=== PATIENT | male | born 1965 | race Caucasian/White ===

== ENCOUNTER → 2017-04-17 | Outpatient (CLI) | payer OTHER ==
[~2017-04-17] MED LIST: ALBU1AER9 INH; ATEN50TA8 PO; IBUP-1428 PO; LISI-725 PO; RANI300T2 PO; SUCR1TAB29 PO
[2017-04-17 12:25] LABS: BASO % 0.5 %; BASO ABS # 0.03 K/uL (0-0.2); COMPLETE YES; EOS % 2.7 %; HEMATOCRIT 47.9 % (42-52); IG% 0.5 %; LYMPH % 33.7 %; MEAN CELL VOLUME 94.5 fL (80-100); MEAN CORPUSCULAR HEMOGLOBIN 32.1 pg (25-34); MEAN PLATELET VOLUME 11.3 fL (7.4-10.4); MONO % 13.5 %; NEUT % 49.1 %; PLATELET COUNT 176 K/uL (130-400); RED BLOOD COUNT 5.07 M/uL (4.7-6.1); WHITE BLOOD COUNT 6.24 K/uL (4.8-10.8)
[2017-04-17 12:43] LABS: ALT/SGPT 59 U/L (12-78); AST/SGOT 29 U/L (15-37); BLOOD UREA NITROGEN 19 mg/dl (7-18); BUN/CREATININE RATIO 18.7 (10-20); CARBON DIOXIDE 26 mmol/L (21-32); CHLORIDE 106 mmol/L (98-107); CREATININE 1.02 mg/dl (0.60-1.40); GLUCOSE 124 mg/dl (70-99); POTASSIUM 4.3 mmol/L (3.5-5.1); SODIUM 136 mmol/L (136-145)
[2017-04-17 12:52] LABS: ALKALINE PHOSPHATASE 77 U/L (45-117); CHOLESTEROL 162 mg/dl (0-200); CHOLESTEROL/HDL RATIO 5.6; HDL CHOLESTEROL 29 mg/dl; LDL CHOLESTEROL CALCULATED 69 mg/dl; TRIGLYCERIDES 319 mg/dl (0-150); VERY LOW DENSITY LIPOPROT CALC 64 mg/dl
[2017-04-18 05:35] LABS: ESTIMATED AVERAGE GLUCOSE 117 mg/dl; HA1C FLAG Normal (Normal)
[2017-04-19 10:00] LABS: QUANTIF TB AG-NIL <0.00 IU/ML; QUANTIFERON NIL 0.06 IU/ML
== END | disposition home or self-care (01) ==
LOC: C.LAB1850 09:51
PROVIDERS: ATTEND Internal Medicine
DX: R73.9 Hyperglycemia, unspecified (principal); I10 Essential (primary) hypertension; R61 Generalized hyperhidrosis

== ENCOUNTER 2024-05-14 10:14 | Inpatient (IN) ==
--- NOTE | 2024-05-14 10:48 | Emergency Department Note ---
Impression & Plan Sepsis, Bimalleolar fracture of left ankle, Acute UTI (urinary tract infection), Neutropenia, Elevated lactic acid level, Hypomagnesemia ED Provider Note HISTORY OF PRESENT ILLNESS: Patient is a 58-year-old male presenting with hematuria, lightheadedness and left ankle pain. Patient reports that he is currently undergoing chemotherapy and radiation therapy for lung cancer. His last round of chemo was last week and his last round of radiation was earlier this week. He states that he was here in the hospital for a chemical induced cardiac stress test and was referred down to the emergency department due to vital sign instability's. Patient reports he been feeling very lightheaded and dizzy for the last few weeks. He states that this is a constant issue for him. He denies any notable fevers. Denies any chest pain or significant shortness of breath. He states that he got very lightheaded while walking in his hallway 3 days ago and lost his footing and inverted his left ankle and had immediate pain to the area. He reports that he wrapped it with an Shahid wrap but has not been able to bear weight ever since. He is not on any anticoagulation or antiplatelet therapy. Denies striking his head during the fall. He states that this morning he woke up and had gross hematuria at 4 AM when he voided. He states he has not had hematuria in the past. Denies any abdominal pain. Denies any dysuria. Patient does report he has been feeling very rundown and tired over the last few days. He states that he has been sleeping more frequently than normal. ROS: as above PHYSICAL EXAM: Constitutional: Patient appears in no acute distress. HENT: Head: Normocephalic and atraumatic. Eyes: EOMI, PERRL Mouth/Throat: Mucous membranes moist. Neck: Trachea midline. Neck supple. Cardiovascular: Tachycardic with regular rhythm. No murmurs, rubs or gallops. Intact distal pulses. Pulmonary/Chest: No respiratory distress. Breath sounds clear and equal bilaterally. Port accessed in left chest. Abdominal: Abdomen soft, no tenderness, rebound or guarding. Musculoskeletal: - LLE: No obvious deformity or open wounds. Patient has ecchymosis to the ankle overlying the medial malleolus. Area is tender to palpation. Patient is able to slightly plantarflex and dorsiflex the ankle, but has significant pain. Intact DP and PT pulses. Patient able to wiggle toes. Sensation intact to light touch about the nerve distributions of the leg. Skin: Warm and dry. No rash, erythema, pallor or cyanosis Psychiatric: Appropriate mood and affect for situation. Neurological: Alert and keenly responsive. CN II-XII grossly intact, moving all extremities equally and fully. MDM: - Vitals signs showed hypertension and tachycardia. The patient was placed on the monitor and IV access was obtained. - History obtained via patient. History as above. - Chronic conditions affecting care: small cell lung cancer; HTN; HLD; IBS; DONAVON - Differential diagnoses include, but are not limited to: Sepsis; UTI; pneumonia; viral syndrome; ankle fracture; dehydration; electrolyte abnormality - Order placed for continuous cardiac monitoring. At this time, monitor showed rate of 100 bpm with normal sinus rhythm, per my interpretation. - External medical records reviewed. Pulmonary office visit note dated 05/11/2024 was reviewed. Patient was having symptomatic hypotension and orthostasis. He was started on Augmentin at his visit due to asthmatic bronchitis. - EKG interpreted by myself showed normal sinus rhythm. Rate tachycardic at 117 bpm. QT 288. No acute ischemic changes. - Laboratory workup interpreted by myself showed pancytopenia (WBC 1.34; Hgb 11.3; plt 75); neutropenic (ANC 0.92); normal PT/INR; slight hyponatremia (Na 134); acute renal failure (Cr 3.54 with BUN 84); elevated lactate (2.4); hypomagnesemia (Mg 1.5); normal troponin; normal BNP; normal procalcitonin - Patient given 2.5L NS. Patient's sepsis fluid volume calculation based on ideal body weight is 2345.5 mL. - Blood cultures obtained - Given 2g IV cefepime empirically, given his neutropenic status. Given 1 g IV magnesium for electrolyte replacement. - UA shows evidence of infection - CXR negative for pneumonia, per my interpretation. Radiology notes right lower lobe pulmonary nodule, but this is known for patient's lung cancer. - Xray left ankle shows bimalellolar fracture, per my interpretation. - Discussed ankle fracture with orthopedic surgeon on-call, Dr. Boone, at 11:45 am. He reports that this can be managed in the outpatient setting. Recommended to try to realign the mortise for reduction prior to splinting. - Patient's left ankle splinted in orthoglass. Given 1 mg IV dilaudid prior to splinting for pain control - Discussion was had with case supervisor about patient's case and need for admission - Hospitalist, Dr. Han, consulted for admission - [facility] and [facility]. I have personally spent 61 minutes of critical care time in the direct management of this patient. This includes bedside care, interpretation of diagnostic studies, and testing, discussion with consultants, patient, and family members, and other required patient management activities. This 61 minutes is in excess of all separately billable procedures. ASSESSMENT AND PLAN: Diagnosis: Sepsis; acute UTI; neutropenia; acute renal failure; elevated lactic acid; hypomagnesemia; bimalleolar left ankle fracture Plan: admit Past Med/Surg History Problem List (Updated 05/14/24 @ 13:08 by Debi Marquez MD) Hypomagnesemia (Acute) Elevated lactic acid level (Acute) Neutropenia (Acute) Acute UTI (urinary tract infection) (Acute) Bimalleolar fracture of left ankle (Acute) Sepsis (Acute) Sepsis Bimalleolar fracture of left ankle Small cell lung cancer in adult Hypotension Acute sinusitis Chest pain Chest pain with low to intermediate probability of pulmonary embolism Shortness of breath on exertion (Chronic) Sleep disturbances Small cell lung cancer (Chronic 02/14/24) Emphysema lung Asthma BPH loc w urin obs/LUTS Atherosclerotic cardiovascular disease Hypersomnolence Allergic rhinitis Abnormal PSA Bradycardia Tubular adenoma of colon Discoloration of skin Idiopathic or primary livedo reticularis Adjustment disorder with anxiety (Acute) Asthmatic bronchitis (Acute) Cervical radiculopathy (Acute) Excessive sweating (Acute) Gastritis, bile acid reflux (Acute) Hyperlipidemia (Acute) Hypertension (Acute) Ulnar nerve palsy (Acute) Medical History (Updated 05/14/24 @ 13:08 by Debi Marquez MD) IBS (irritable bowel syndrome) H. pylori infection Anxiety DONAVON (obstructive sleep apnea) Severe sleep apnea per 03/05/24 sleep study CPAP order faxed to [facility] per 03/06/24 workload communication note Emphysema lung Small cell lung cancer Recent diagnosis 01/2024 Morbid obesity Premature ventricular contraction Hx GERD without esophagitis Chronic cough History of bradycardia Hypersomnolence Allergic rhinitis Hx of gastritis Hypertension Hyperlipidemia Adjustment disorder with mixed anxiety and depressed mood Lung nodule Atherosclerotic cardiovascular disease Surgical History Port-A-Cath in place (03/12/24) Hx of tonsillectomy History of surgery History of bronchoscopy Hx of colonoscopy with polypectomy (09/2023) Hx of cardiac catheterization (2015) S/P sinus surgery S/P cholecystectomy Family History Grandmother (Maternal) Bone cancer Mother Breast cancer Hiatal hernia Endometrial cancer A-fib Father Hypertension Dementia Stroke CHF (congestive heart failure) History of lung surgery Uncle Diabetes Hypertension Stroke Grandfather Diabetes Heart disease Stroke Sister Family history of reaction to anesthesia Brother Lung cancer Sleep apnea Brother Hepatitis C Brother No problems noted. Sister Cerebral aneurysm Breast cancer Hypertension Sister No problems noted. Daughter No problems noted. Other Asthma Cancer Emphysema, unspecified Denies family history of Ovarian cancer Prostate cancer Myocardial infarction Colorectal cancer Lung disease Social History Smoking Status: Never smoker Tobacco Type: Cigarettes Age Started Using Tobacco: 24; Age Quit Using Tobacco: 46; packs per day: 2; Second Hand Exposure: No; Do You Dip or Chew Tobacco: No; Hx Alcohol Use: No (quit 35yrs ago) Hx Substance Use: No Preferred Language: Chinese Communication Ability: Effective Visual Impairment: No Limitations Hearing Ability: Normal Foxpro Developer Required: No Beliefs That Will Affect Care: None marital status: Single Current Living Situation: Alone current occupational status: employed 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 How many Children do You have: 1 Feels Safe at Home: Yes Dental Care, Regularly: No Physical Activity Frequency: Does not Exercise Seatbelt Use: always Sunscreen Use: No Assistive Devices: Glasses Allergies Allergies Allergy/AdvReac Type Severity Reaction Status Date / Time No Known Drug Allergies Allergy Verified 05/04/24 13:25 Home Meds Home Medications Medication Instructions Recorded Confirmed atorvastatin 10 mg tablet 10 mg PO QAM 02/12/24 05/04/24 escitalopram oxalate 20 mg tablet 20 mg PO QAM 02/12/24 05/04/24 losartan 100 mg tablet 100 mg PO QAM 02/12/24 05/04/24 tamsulosin 0.4 mg capsule 0.4 mg PO QAM 02/12/24 05/04/24 prochlorperazine maleate 10 mg 10 mg PO Q6H PRN 04/20/24 05/04/24 tablet (Compazine) Previous Rx's Medication Instructions Recorded albuterol sulfate 90 mcg/actuation 1 inh inhalation QID PRN shortness 09/30/23 aerosol inhaler of breath or wheezing #18 grams Auto Titrating CPAP #1 ea 03/06/24 CPAP Supplies #1 ea 03/06/24 fluticasone fur. 200 mcg-umeclid 1 inh inhalation DAILY #60 ea 03/12/24 62.5 mcg-vilant 25 mcg inhalat.powder (Trelegy Ellipta) pantoprazole 20 mg tablet,delayed 20 mg PO QAM #90 tabs 03/19/24 release trazodone 100 mg tablet 100 mg PO DAILY #30 tabs 03/23/24 atenolol 50 mg tablet 50 mg PO QAM #90 tabs 05/05/24 montelukast 10 mg tablet 10 mg PO QAM #30 tabs 05/06/24 sucralfate 1 gram tablet (Carafate) 1 g PO TID #90 tabs 05/07/24 amoxicillin 500 mg-potassium 1 tab PO BID 10 days #20 tabs 05/11/24 clavulanate 125 mg tablet (Augmentin) Results & Data (ED) Vital Signs Vital Signs - 24 hr 05/14/24 10:26 05/14/24 10:32 05/14/24 11:20 Temperature 36.5 C Temperature Source Oral Pulse Rate 140 H Pulse Rate [Left Finger] 110 H Respiratory Rate 18 22 Blood Pressure 201/158 H Blood Pressure [Right Arm] 139/109 H Blood Pressure Mean 172 Blood Pressure Mean [Right Arm] 119 Blood Pressure Position Sitting Pulse Oximetry 98 98 Oxygen Delivery Method Room Air Room Air Sepsis Recent Fever Within 48 Hours No Sepsis New/Unexplained Change in Mental Status No Sepsis Action Taken by Nursing No Action Required 05/14/24 12:09 05/14/24 12:30 Temperature Temperature Source Pulse Rate 109 H Pulse Rate [Left Finger] 98 H Respiratory Rate 18 Blood Pressure Blood Pressure [Right Arm] 136/87 Blood Pressure Mean Blood Pressure Mean [Right Arm] 103 Blood Pressure Position Pulse Oximetry 96 Oxygen Delivery Method Sepsis Recent Fever Within 48 Hours Sepsis New/Unexplained Change in Mental Status Sepsis Action Taken by Nursing Laboratory Data 05/14/24 10:53 05/14/24 10:53 Lab Results 05/14/24 Range/Units 10:53 WBC 1.34 L (4.8-10.8) K/ul RBC 3.55 L (4.70-6.10) M/uL Hgb 11.3 L (14.0-18.0) g/dl Hct 30.5 L (42.0-52.0) % MCV 85.9 (80.0-100.0) fL MCH 31.8 (25.0-34.0) pg MCHC 37.0 H (32.0-36.0) g/dL RDW Std Deviation 40.1 (36.4-46.3) fL RDW Coeff of Robert 12.9 (11.5-14.5) % Plt Count 75 L (130-400) K/uL MPV 11.0 (9.4-12.4) fL Immature Gran % (Auto) 1.5 % Neut % (Auto) 68.6 % Lymph % (Auto) 18.7 % Bonner % (Auto) 9.7 % Eos % (Auto) 0.0 % Baso % (Auto) 1.5 % Neut # (Auto) 0.92 L* (1.40-6.50) K/uL Lymph # (Auto) 0.25 L (1.20-3.40) K/uL Bonner # (Auto) 0.13 (0.11-0.59) K/uL Eos # (Auto) 0.00 (0.00-0.50) K/uL Baso # (Auto) 0.02 (0.00-0.20) K/uL Immature Gran # (Auto) 0.02 (0.01-0.20) K/uL Platelet Estimate Decreased L (Normal) PT 10.8 (9.0-12.0) Seconds INR 1.0 (0.9-1.1) Sodium 134 L (136-145) mmol/L Potassium 4.3 (3.5-5.1) mmol/L Chloride 99 (98-107) mmol/L Carbon Dioxide 20 L (21-32) mmol/L Anion Gap 15 H (3-11) BUN 84 H (6-23) mg/dl Creatinine 3.54 H (0.6-1.4) mg/dl Est Cr Clr Drug Dosing 31.5 ml/min eGFR 19.14 BUN/Creatinine Ratio 23.7 H (10-20) Glucose 130 H (70-99(Fasting)) mg/dl Lactate 2.4 H* (0.4-2.0) mmol/L Calcium 9.9 (8.6-10.3) mg/dl Magnesium 1.5 L (1.7-2.4) mg/dl Total Bilirubin 1.2 H (0.2-1.0) mg/dl Direct Bilirubin 0.2 (0-0.2) mg/dl AST 16 (13-39) U/L ALT 25 (7-52) U/L Alkaline Phosphatase 80 (34-104) U/L Troponin I High Sens 9.4 (0-20) pg/ml B-Natriuretic Peptide 26 (0-100) pg/ml Total Protein 7.5 (6.0-8.3) gm/dl Albumin 4.4 (3.4-5.0) gm/dl Procalcitonin 0.27 (0-0.5) ng/ml Urine Color Yellow Urine Appearance Cloudy A (Clear) Urine pH 5.0 (4.5-7.5) Ur Specific Coolin 1.014 (1.000-1.030) Urine Protein Trace H (Negative) Urine Glucose (UA) Negative (Negative) Urine Ketones Trace H (Negative) Urine Blood 2+ H (Negative) Urine Nitrite Negative (Negative) Urine Bilirubin Negative (Negative) Urine Urobilinogen Negative (Negative) Ur Leukocyte Esterase Trace H (Negative) Urine WBC (Auto) 21-50 H (0-5) /hpf Urine RBC (Auto) 3-5 H (0-2) /hpf U Hyaline Cast (Auto) 0-2 (0-2) /lpf U Epithel Cells (Auto) 3-5 H (0-2) /hpf Urine Bacteria (Auto) 3+ H (None Seen) Urine Mucus Present A (None Prsent) Adenovirus (PCR) Not Detected (NotDetected) B. pertussis DNA (PCR) Not Detected (NotDetected) B.parapertussis DNA PCR Not Detected (NotDetected) C. pneumoniae DNA (PCR) Not Detected (NotDetected) Coronavirus OC43 (PCR) Not Detected (NotDetected) Coronavirus HKU1 (PCR) Not Detected (NotDetected) Coronavirus 229E (PCR) Not Detected (NotDetected) SARS-CoV-2 (PCR) Not Detected (NotDetected) Coronavirus NL63 (PCR) Not Detected (NotDetected) Human Metapneumovir PCR Not Detected (NotDetected) Influenza Type A (PCR) Not Detected (NotDetected) Influenza Type B (PCR) Not Detected (NotDetected) M. pneumoniae (PCR) Not Detected (NotDetected) Parainfluenza 1 (PCR) Not Detected (NotDetected) Parainfluenza 2 (PCR) Not Detected (NotDetected) Parainfluenza 3 (PCR) Not Detected (NotDetected) Parainfluenza 4 (PCR) Not Detected (NotDetected) RSV (PCR) Not Detected (NotDetected) Entero/Rhino (PCR) Not Detected (NotDetected) Administered Medications Magnesium Sulfate/Dextrose (Magnesium Sulfate / D5w) 1 gm in 100 mls @ 100 mls/hr IV Q1H JENNIFER Stop: 05/14/24 14:20 Last Admin: 05/14/24 12:40 Dose: 100 mls/hr Documented By: CANDE Discontinued Medications Hydromorphone HCl (Hydromorphone Inj 1 Mg/Ml Syringe) 1 mg IV NOW STA Stop: 05/14/24 12:00 Last Admin: 05/14/24 12:03 Dose: 1 mg Documented By: CANDE Sodium Chloride (Nss) 1,000 mls @ 999 mls/hr IV .Q1H1M ONE Stop: 05/14/24 12:31 Last Admin: 05/14/24 11:43 Dose: 999 mls/hr Documented By: CANDE Cefepime HCl (Maxipime 2000mg) 2,000 mg in 20 mls @ 5 mls/min IV NOW STA; Protocol Stop: 05/14/24 11:34 Last Admin: 05/14/24 11:43 Dose: 5 mls/min Documented By: CANDE Imaging Data Radiologist's Impression: Ankle X-Ray 05/14/24 10:31 XR ankle LT 2V CLINICAL HISTORY: L ankle pain TECHNIQUE: 3 views of the left ankle were obtained. Comparison: None available at the time of this dictation. FINDINGS: There is an acute fracture of the medial malleolus and a fracture of the fibula at or above the tibiofibular syndesmosis. These fractures are minimally displaced. The ankle mortise is widened. Soft tissue swelling is seen about the ankle. IMPRESSION: Bimalleolar fracture with widening of the ankle mortise and associated soft tissue swelling. ACT 112: Negative or not required by law. Electronically signed by: Joseph Marino M.D. 05/14/2024 11:28 AM Chest X-Ray 05/14/24 10:32 XR chest 1V portable HISTORY: 58 years-old Male Sepsis COMPARISON: CTA chest 04/01/2024 TECHNIQUE: AP view of the chest FINDINGS: Cardiomediastinal and hilar silhouettes are unchanged. Left IJ Uquney-b-Btde catheter distal tip noted in the expected location of the SVC. No pneumothorax, pleural effusion or pulmonary edema. Emphysema with chronic interstitial coarsening. Previously noted 1.5 cm nodule within the right lower lobe is better seen on prior CT study. Bones appear grossly intact. IMPRESSION: 1. Emphysema without acute process. 2. Right lower lobe pulmonary nodule better seen on prior chest CT. ACT 112: Negative or not required by law. The above report was generated using voice recognition software. It may contain grammatical, syntax or spelling errors. Electronically signed by: Emmanuel Kapoor M.D. 05/14/2024 11:29 AM Discharge Plan Visit Data Chief Complaint: Hematuria Stated Complaint: POSSIBLE BROKEN LT ANKLE, HEMATURIA ED Provider: Debi Marquez Discharge Problem: Sepsis, Bimalleolar fracture of left ankle, Acute UTI (urinary tract infection), Neutropenia, Elevated lactic acid level, Hypomagnesemia Forms Stand Alone Forms: [facility] Prescriptions Prescriptions: No Action prochlorperazine maleate [Compazine] 10 mg tablet 10 mg PO Q6H PRN albuterol sulfate 90 mcg/actuation HFA aerosol inhaler 1 inh inhalation QID PRN (Reason: shortness of breath or wheezing) Qty: 18 3RF (DME) CPAP Supplies Misc See Rx Instructions .ROUTE .MEDSUPPLY Qty: 1 0RF Rx Instructions: CPAP supplies (DME) Auto Titrating CPAP Misc See Rx Instructions .ROUTE .MEDSUPPLY Qty: 1 0RF Rx Instructions: auto cpap 5-15 cmh20 Trelegy Ellipta 200-62.5-25 mcg blister with device 1 inh inhalation DAILY Qty: 60 2RF pantoprazole 20 mg tablet,delayed release (DR/EC) 20 mg PO QAM Qty: 90 3RF atenolol 50 mg tablet 50 mg PO QAM Qty: 90 1RF montelukast 10 mg tablet 10 mg PO QAM Qty: 30 2RF sucralfate [Carafate] 1 gram tablet 1 g PO TID Qty: 90 5RF trazodone 100 mg tablet 100 mg PO DAILY Qty: 30 5RF amoxicillin-pot clavulanate [Augmentin] 500-125 mg tablet 1 tab PO BID 10 Days Qty: 20 0RF atorvastatin 10 mg tablet 10 mg PO QAM tamsulosin 0.4 mg capsule 0.4 mg PO QAM losartan 100 mg tablet 100 mg PO QAM escitalopram oxalate 20 mg tablet 20 mg PO QAM Referrals Referrals: Erin Neal MD [Primary Care Provider] -
--- NOTE | 2024-05-14 11:30 | XRay Report ---
XR chest 1V portable HISTORY: 58 years-old Male Sepsis COMPARISON: CTA chest 04/01/2024 TECHNIQUE: AP view of the chest FINDINGS: Cardiomediastinal and hilar silhouettes are unchanged. Left IJ [id number]-[id number] catheter distal tip note d in the expected location of the SVC. No pneumothorax, pleural effusion or pulmonary edema. Emphysem a with chronic interstitial coarsening. Previously noted 1.5 cm nodule within the right lower lobe is better seen on prior CT study. Bones appear grossly intact. IMPRESSION: 1. Emphysema without acute process. 2. Right lower lobe pulmonary nodule better seen on prior chest CT. ACT 112: Negative or not required by law. The above report was generated using voice recognition software. It may contain grammatical, syntax o r spelling errors. Electronically signed by: Emmanuel Kapoor M.D. 05/14/2024 11:29 AM
--- NOTE | 2024-05-14 11:30 | XRay Report ---
XR ankle LT 2V CLINICAL HISTORY: L ankle pain TECHNIQUE: 3 views of the left ankle were obtained. Comparison: None available at the time of this dictation. FINDINGS: There is an acute fracture of the medial malleolus and a fracture of the fibula at or above the tibio fibular syndesmosis. These fractures are minimally displaced. The ankle mortise is widened. Soft tiss ue swelling is seen about the ankle. IMPRESSION: Bimalleolar fracture with widening of the ankle mortise and associated soft tissue swelling. ACT 112: Negative or not required by law. Electronically signed by: Joseph Marino M.D. 05/14/2024 11:28 AM
[2024-05-14 11:32] LABS: Appearance Urine Cloudy (Clear); Bilirubin Urine Negative (Negative); Blood Urine 2+ (Negative); Color Urine Yellow; Glucose Urine UA Negative (Negative); Ketones Urine Trace (Negative); Leukocyte Esterase Urine Trace (Negative); Nitrite Urine Negative (Negative); Protein Urine Trace (Negative); Specific Gravity Urine 1.014 (1.000-1.030); Urobilinogen Urine Negative (Negative)
[2024-05-14] MEDS: CEFEPIME 2000MG 2,000 MG/20 ML SYR IV STA (11:43)
[2024-05-14] MEDS: SODIUM CHLORIDE 0.9% 1,000 ML IV ONE (11:43)
[2024-05-14 11:46] LABS: Bacteria Urine Automated 3+ (None Seen); Cast Urine Automated 0-2 /lpf (0-2)
[2024-05-14 11:47] LABS: Mucus Urine Present (None Prsent); WBC Urine Automated 21-50 /hpf (0-5)
[2024-05-14 11:55] LABS: Hematocrit (blood only) 30.5 % (42.0-52.0); Hemoglobin 11.3 g/dl (14.0-18.0); Mean Corpuscular Hemoglobin 31.8 pg (25.0-34.0); Mean Corpuscular Volume 85.9 fL (80.0-100.0); RDW Coefficient of Variation 12.9 % (11.5-14.5); RDW Standard Deviation 40.1 fL (36.4-46.3); Red Blood Count 3.55 M/uL (4.70-6.10); White Blood Count 1.34 K/ul (4.8-10.8)
[2024-05-14 11:57] LABS: Albumin Level 4.4 gm/dl (3.4-5.0); BUN Creatinine Ratio 23.7 (10-20); Bilirubin Direct 0.2 mg/dl (0-0.2); Bilirubin,Total 1.2 mg/dl (0.2-1.0); Calcium 9.9 mg/dl (8.6-10.3); Creatinine Clr Calc Pharmacy 31.5 ml/min; Magnesium 1.5 mg/dl (1.7-2.4); Potassium 4.3 mmol/L (3.5-5.1); Total Protein 7.5 gm/dl (6.0-8.3)
[2024-05-14] MEDS: HYDROmorphone INJ 1 MG/ML SYRINGE IV STA (12:03)
[2024-05-14 12:04] LABS: Troponin I High Sensitivity 9.4 pg/ml (0-20)
[2024-05-14 12:07] LABS: Prothrombin Time 10.8 Seconds (9.0-12.0)
[2024-05-14 12:08] LABS: Adenovirus PCR Not Detected (NotDetected); Bordetella parapertussis PCR Not Detected (NotDetected); Bordetella pertussis PCR Not Detected (NotDetected); Chlamydia pneumoniae PCR Not Detected (NotDetected); Coronavirus 229E PCR Not Detected (NotDetected); Coronavirus CoV-2 (COVID19)PCR Not Detected (NotDetected); Coronavirus HKU1 PCR Not Detected (NotDetected); Coronavirus NL63 PCR Not Detected (NotDetected); Coronavirus OC43PCR Not Detected (NotDetected); Human Metapneumovirus PCR Not Detected (NotDetected); Influenza A PCR Not Detected (NotDetected); Influenza B PCR Not Detected (NotDetected); Mycoplasma pneumoniae PCR Not Detected (NotDetected); Parainfluenza Virus 1 PCR Not Detected (NotDetected); Parainfluenza Virus 2 PCR Not Detected (NotDetected); Parainfluenza Virus 3 PCR Not Detected (NotDetected); Parainfluenza Virus 4 PCR Not Detected (NotDetected); Respiratory Syncytial VirusPCR Not Detected (NotDetected); Rhinovirus/Enterovirus PCR Not Detected (NotDetected)
[2024-05-14 12:16] LABS: Platelet Count 75 K/uL (130-400)
[2024-05-14 12:18] LABS: Basophils # (auto) 0.02 K/uL (0.00-0.20); Basophils % (auto) 1.5 %; Immature Granulocytes # (auto) 0.02 K/uL (0.01-0.20); Immature Granulocytes % (auto) 1.5 %; Lymphocytes # (auto) 0.25 K/uL (1.20-3.40); Lymphocytes % (auto) 18.7 %; Monocytes # (auto) 0.13 K/uL (0.11-0.59); Monocytes % (auto) 9.7 %; Neutrophils # (auto) 0.92 K/uL (1.40-6.50); Neutrophils % (auto) 68.6 %; Platelet Estimate Decreased (Normal)
[2024-05-14] MEDS: MAGNESIUM SULFATE / D5W 1 GM/100 ML BAG IV SCH (12:40)
[2024-05-14] MEDS ORDERED: ALUMINUM/MAGNESIUM SUSP 30 ML UDC PO PRN (12:43)
[2024-05-14] MEDS: SODIUM CHLORIDE 0.9% 500 ML IV ONE ×2 (12:45→13:30)
--- NOTE | 2024-05-14 12:47 | Electrocardiogram Report ---
Test Reason : Blood Pressure : */* mmHG Vent. Rate : 117 BPM Atrial Rate : 117 BPM P-R Int : 166 ms QRS Dur : 78 ms QT Int : 288 ms P-R-T Axes : 52 53 72 degrees QTcB Int : 401 ms Sinus tachycardia with Premature atrial complexes Otherwise normal ECG Confirmed by Mayito Alvarez ([id number]) on 05/14/2024 12:47:35 PM Referred By: Shay Cloud Confirmed By: Mayito lAvarez
--- NOTE | 2024-05-14 13:03 | History & Physical Report ---
Date of Service May 14, 2024 Assessment & Plan (1) Sepsis: Plan: Concern for sepsis from urinary source in the face of pancytopenia induced by chemotherapy Urine analysis is abnormal final urine cultures and blood cultures are pending Initiated on cefepime therapy renal dose adjusted with pharmacy following along Patient's elevated lactic acid of 2.4 with repeat pending. Patient is acute kidney injury likely due to preceding hospital illness hydration with volume from sepsis resuscitation and continuing IV fluid with reassessment of kidney function. (2) Small cell lung cancer in adult: Plan: Undergoing chemoradiation therapy at the [facility], patient with chemotherapy-induced pancytopenia (3) Emphysema lung: Plan: Previous history of emphysema patient is maintained on Trelegy and Singulair remains on room air CPAP for DONAVON (4) Bimalleolar fracture of left ankle: Plan: er consult with Dr Boone recommends out patient treatment will sling and splint (5) AF (atrial fibrillation): Plan: Patient developed atrial fibrillation rapid ventricular response was associate with cardiac discomfort on the afternoon evening of 05/14. Employing transition of atenolol to metoprolol with additional metoprolol back up Will reassure his magnesium is replete Plan for hypertension and cardiac prevention pt continues on atenolol/losartan and atorvastatin, holding losartan for isabelle lexapro continues for depression, trazadone for sleep tamsulosin for BPH History of Present Illness Primary Care Provider: Erin Neal MD 50-year-old male currently undergoing treatment for limited stage small cell diana g cancer diagnosed February 14, 2024 with a background of COPD. Small cell lung cancer is being treated by both chemotherapy and radiation therapy who presents to the emergency department with hypertensive urgency undergoing chemical stress testing. Patient is found to likely be septic from urinary source with elevated lactic acid tachycardia and evidence of neutropenia with an ANC of 920 likely due to chemotherapy. Patient was given cefepime in the emergency department 2 L of fluid and did have some improvement. Patient feels 3 days prior to admission when he get dizzy at home and likely sustained a bimalleolar fracture which is present on admission to his left ankle. ER consultation with Ortho foot and ankle feels this is able to be stabilized after being reduced and will be seen as an outpatient once his medical problems are improved Patient is found to be pancytopenic in the emergency department although his anemia is slight and his platelet counts are 75. He also has acute kidney injury with BUN and creatinine of 84 and 3.54 hopeful his hydration for sepsis will improve this. Subsequently though he does need renal dosing of his antibiotics. Allergies Allergy/AdvReac Type Severity Reaction Status Date / Time No Known Drug Allergies Allergy Verified 05/04/24 13:25 Home Medications Medication Instructions Recorded Confirmed Type albuterol sulfate 90 mcg/actuation 1 inh inhalation QID PRN shortness 09/30/23 05/14/24 Rx aerosol inhaler of breath or wheezing #18 grams atorvastatin 10 mg tablet 10 mg PO QAM 02/12/24 05/14/24 History escitalopram oxalate 20 mg tablet 20 mg PO QAM 02/12/24 05/14/24 History losartan 100 mg tablet 100 mg PO QAM 02/12/24 05/14/24 History tamsulosin 0.4 mg capsule 0.4 mg PO QAM 02/12/24 05/14/24 History Auto Titrating CPAP #1 ea 03/06/24 05/04/24 Rx CPAP Supplies #1 ea 03/06/24 05/04/24 Rx fluticasone fur. 200 mcg-umeclid 1 inh inhalation DAILY #60 ea 03/12/24 05/14/24 Rx 62.5 mcg-vilant 25 mcg inhalat.powder (Trelegy Ellipta) pantoprazole 20 mg tablet,delayed 20 mg PO QAM #90 tabs 03/19/24 05/14/24 Rx release trazodone 100 mg tablet 100 mg PO DAILY #30 tabs 03/23/24 05/14/24 Rx prochlorperazine maleate 10 mg 10 mg PO Q6H PRN Nausea And 04/20/24 05/14/24 History tablet (Compazine) Vomiting atenolol 50 mg tablet 50 mg PO QAM #90 tabs 05/05/24 05/14/24 Rx montelukast 10 mg tablet 10 mg PO QAM #30 tabs 05/06/24 05/14/24 Rx sucralfate 1 gram tablet (Carafate) 1 g PO TID #90 tabs 05/07/24 05/14/24 Rx triamterene 37.5 1 cap PO DAILY 05/14/24 05/14/24 History mg-hydrochlorothiazide 25 mg capsule Past Med/Surg History Problem List (Updated 05/14/24 @ 19:26 by Sim Han MD) AF (atrial fibrillation) Hypomagnesemia (Acute) Elevated lactic acid level (Acute) Neutropenia (Acute) Acute UTI (urinary tract infection) (Acute) Bimalleolar fracture of left ankle (Acute) Sepsis (Acute) Sepsis Bimalleolar fracture of left ankle Small cell lung cancer in adult Hypotension Acute sinusitis Chest pain Chest pain with low to intermediate probability of pulmonary embolism Shortness of breath on exertion (Chronic) Sleep disturbances Small cell lung cancer (Chronic 02/14/24) Emphysema lung Asthma BPH loc w urin obs/LUTS Atherosclerotic cardiovascular disease Hypersomnolence Allergic rhinitis Abnormal PSA Bradycardia Tubular adenoma of colon Discoloration of skin Idiopathic or primary livedo reticularis Adjustment disorder with anxiety (Acute) Asthmatic bronchitis (Acute) Cervical radiculopathy (Acute) Excessive sweating (Acute) Gastritis, bile acid reflux (Acute) Hyperlipidemia (Acute) Hypertension (Acute) Ulnar nerve palsy (Acute) Medical History (Updated 05/14/24 @ 19:26 by Sim Han MD) IBS (irritable bowel syndrome) H. pylori infection Anxiety DONAVON (obstructive sleep apnea) Severe sleep apnea per 03/05/24 sleep study CPAP order faxed to [facility] per 03/06/24 workload communication note Emphysema lung Small cell lung cancer Recent diagnosis 01/2024 Morbid obesity Premature ventricular contraction Hx GERD without esophagitis Chronic cough History of bradycardia Hypersomnolence Allergic rhinitis Hx of gastritis Hypertension Hyperlipidemia Adjustment disorder with mixed anxiety and depressed mood Lung nodule Atherosclerotic cardiovascular disease Surgical History Port-A-Cath in place (03/12/24) Hx of tonsillectomy History of surgery History of bronchoscopy Hx of colonoscopy with polypectomy (09/2023) Hx of cardiac catheterization (2015) S/P sinus surgery S/P cholecystectomy Family History Grandmother (Maternal) Bone cancer Mother Breast cancer Hiatal hernia Endometrial cancer A-fib Father Hypertension Dementia Stroke CHF (congestive heart failure) History of lung surgery Uncle Diabetes Hypertension Stroke Grandfather Diabetes Heart disease Stroke Sister Family history of reaction to anesthesia Brother Lung cancer Sleep apnea Brother Hepatitis C Brother No problems noted. Sister Cerebral aneurysm Breast cancer Hypertension Sister No problems noted. Daughter No problems noted. Other Asthma Cancer Emphysema, unspecified Denies family history of Ovarian cancer Prostate cancer Myocardial infarction Colorectal cancer Lung disease Social History Smoking Status: Never smoker Tobacco Type: Cigarettes Age Started Using Tobacco: 24; Age Quit Using Tobacco: 46; packs per day: 2; Second Hand Exposure: No; Do You Dip or Chew Tobacco: No; Hx Alcohol Use: No (quit 35yrs ago) Hx Substance Use: No Preferred Language: Arabic Communication Ability: Effective Visual Impairment: No Limitations Hearing Ability: Normal Movie Theater Usher Required: No Beliefs That Will Affect Care: None marital status: Single Current Living Situation: Alone 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 Head exam is normocephalic atraumatic Neck is without JVD, thyromegaly, or carotid bruits. Lungs are coarse breath sounds bilaterally worse on the left Cardiac exam, Rhythm is regular.. No murmurs, rubs or gallops. Abdominal exam reveals normal bowel sounds, soft non tender, no masses Extremities patient has a sling and swath on his left leg from his bimalleolar fracture Neurologic exam is alert and oriented, examination of his left lower leg cannot be undertaken due to the splint Skin is without bruises or rashes on visible skin Psychologically is without concerns for anxiety or depression.. Results & Data Results & Data Vital Signs (Past 12 Hours) Vital Signs Temp Pulse Pulse Resp BP BP Pulse Ox 05/14/24 12:30 98 H 18 136/87 96 05/14/24 12:09 109 H 05/14/24 11:20 110 H 22 139/109 H 98 05/14/24 10:32 05/14/24 10:26 97.7 F 140 H 18 201/158 H 98 O2 Del Method 05/14/24 12:30 05/14/24 12:09 05/14/24 11:20 05/14/24 10:32 Room Air 05/14/24 10:26 Room Air Laboratory Results Reviewed CBCpancytopenia reviewed chemistry with acute kidney injury elevated lactic acid hypomagnesemia Code Status & VTE Plan VTE Prophylaxis Plan VTE Prophylaxis will be ordered: Yes PG Care Time/CCT Total # of Minutes Spent Total Time Spent with Patient: Total time spent is greater than 50% in coordination of care (as documented) at patient's floor/unit and/or counseling patient: Coding Level of Care Code 25629 INT INP/OBS CARE 375MIN Diagnoses Sepsis A41.9 Small cell lung cancer in adult C34.90 Emphysema lung J43.9 Bimalleolar fracture of left ankle S82.842A AF (atrial fibrillation) I48.91
[2024-05-14] MEDS: SODIUM CHLORIDE 0.9% 1,000 ML IV SCH (14:50)
[2024-05-14] MEDS ORDERED: hydrALAZINE HCL 20 MG/ML VIAL IV PRN (15:17)
[2024-05-14] MEDS ORDERED: PROCHLORPERAZINE MALEATE 10 MG TAB PO PRN (15:17)
[2024-05-14] MEDS ORDERED: ALBUTEROL HFA 8 GM INHALER INH PRN (15:17)
[2024-05-14] MEDS: SUCRALFATE 1 GM TAB PO SCH (16:15)
[2024-05-14] MEDS: ERTAPENEM 1000MG 1,000 MG/10 ML SYR IV SCH (16:15)
[2024-05-14] MEDS: ACETAMINOPHEN 325 MG TAB PO PRN (16:20)
--- NOTE | 2024-05-14 17:08 | Myocardial Perfusion Study ---
Date of Service May 14, 2024 Myocardial Perfusion Study [facility] Myocardial Perfusion Study Report LEXISCAN STRESS MYOCARDIAL PERFUSION IMAGING STUDY Indication: Chest pain Brief description: Rest portion-at 743 the patient was injected with 10.1 mCi Tc 99m Cardiolite IV. 1 hour following injection, myocardial perfusion imaging was performed in multiple projections. Stress portion-baseline heart rate, blood pressure, and EKG were obtained. The same parameters were monitored for 3 minutes of infusion and 3 minutes recovery. They were intermittently recorded. Patient was infused with 0.4 mg Lexiscan IV followed immediately by injection of 31 mCi Tc 99m Cardiolite IV. 30 minutes following injection, myocardial perfusion imaging was performed in multiple projections similar to those utilized for the rest portion. Patient reported no chest pain or tightness with infusion. Hemodynamic and electrocardiographic findings: 1. Resting heart rate was 102 bpm and mina to a maximum of 123 bpm with Lexiscan infusion. 2. Resting blood pressure was 150/85 mmHg and mina to a maximum of 178/58 mmHg with Lexiscan infusion. 3. Baseline EKG demonstrated normal sinus rhythm. There were no diagnostic ischemic ST segment or T wave changes with Lexiscan infusion. No Lexiscan induced arrhythmias. Myocardial perfusion imaging findings: 1. Raw data analysis shows mild motion artifact, increased liver uptake. This is a limited but adequate quality study for interpretation. 2. Gated myocardial perfusion imaging demonstrates normal size LV, normal EF calculated at 62%, and mild septal wall motion abnormality. 3. There is a medium in size (5 to 10% myocardium), mild intensity, predominantly fixed MPI defect involving the mid to distal inferior and septal myocardium sparing the apex. These findings are consistent with prior myocardial infarction and minimal to mild eugenio-infarct ischemia plus or minus contribution of artifact. 4. Study is moderately abnormal. Low risk for myocardial ischemia. No prior studies for comparison. Recommend discuss findings further with cardiology as indicated clinically. [facility] Myocardial perfusion code Indication for Procedure (1) Chest pain: Procedure Code Procedure 1: Myocardial Perfusion Codes: 02984 Cardiovascular Stress Test, multiple Procedure 2: Myocardial Perfusion Codes: 17185 Cardiovascular Stress Test, supervision only Procedure 3: Myocardial Perfusion Codes: 32400 Cardiovascular Stress Test, in terpretation and report
[2024-05-14] MEDS ORDERED: MoRPHine SULFATE 2 MG/ML CARP IV PRN (17:29)
--- NOTE | 2024-05-14 17:45 | XRay Report ---
EXAM: Radiographs of the Left Ankle 3 Views INDICATION: Post reduction. TECHNIQUE: Frontal, lateral and oblique views of the left ankle. Images obtained at 5:12 PM. COMPARISON: No relevant prior studies available. FINDINGS: Limitations: None. Bones/joints: Plaster cast in place obscuring underlying bony detail. There is an oblique fracture of the distal fibular shaft displaced half shaft width lateral involving the superior syndesmosis which is slightly widened. Ankle mortise symmetric. There is acute fracture of the medial malleolus with slight distraction of 3 mm at the lateral metaphysis. Small plantar calcaneal spur noted. Soft tissues: Diffuse mild swelling. IMPRESSION: Acute fractures of the medial malleolus and distal fibula as above with widening of the syndesmosis postreduction. ACT 112: Negative or not required by law. Electronically signed by Litzy Negron 05-14-2024 5:43 PM
[2024-05-14] MEDS: oxyCODONE HCL IR 5 MG TAB (IMMEDIATE RELEASE) PO PRN (18:07)
[2024-05-14] MEDS: METOPROLOL TARTRATE 25 MG TAB PO ONE (19:36)
[2024-05-14] MEDS: METOPROLOL TARTRATE 1 MG/ML VIAL IV PRN (19:58)
[2024-05-14] MEDS ORDERED: LORazepam 2 MG/1 ML VIAL IV PRN (20:01)
[2024-05-14 20:11] LABS: BUN Creatinine Ratio 26.2 (10-20); Creatinine Clr Calc Pharmacy 30.7 ml/min; Magnesium 1.9 mg/dl (1.7-2.4); Potassium 4.1 mmol/L (3.5-5.1)
[2024-05-14] MEDS: MAGNESIUM SULFATE / D5W 1 GM/100 ML BAG IV ONE (20:24)
[2024-05-14] MEDS: METOPROLOL TARTRATE 1 MG/ML VIAL IV STA (20:30)
[2024-05-14] MEDS: traZODone HCL 50 MG TAB PO SCH (22:30)
[2024-05-15] MEDS: TAMSULOSIN HCL 0.4 MG CAP PO SCH (08:00)
[2024-05-15] MEDS: FLUTICASONE FUROATE 200MCG 14 PUFFS/INHALER INH SCH (08:05)
[2024-05-15] MEDS: ATORVASTATIN 10 MG TAB PO SCH (08:06)
[2024-05-15] MEDS: PANTOprazole 40 MG TAB PO SCH (08:07)
[2024-05-15] MEDS: ESCITALOPRAM OXALATE 20 MG TAB PO SCH (08:07)
[2024-05-15] MEDS: MONTELUKAST SODIUM 10 MG TABLET PO SCH (08:07)
[2024-05-15] MEDS: UMECLIDINIUM/VILANTEROL 62.5/25MCG 7 PUFFS/INHALER INH SCH (08:08)
[2024-05-15 08:27] LABS: BUN Creatinine Ratio 27.2 (10-20); Calcium 8.9 mg/dl (8.6-10.3); Creatinine Clr Calc Pharmacy 37.6 ml/min; Potassium 4.1 mmol/L (3.5-5.1)
[2024-05-15] MEDS: METOPROLOL TARTRATE 50 MG TAB PO SCH (08:35)
[2024-05-15 08:42] LABS: Hematocrit (blood only) 23.6 % (42.0-52.0); Hemoglobin 8.6 g/dl (14.0-18.0); Mean Corpuscular Hemoglobin 31.5 pg (25.0-34.0); Mean Corpuscular Hgb Conc 36.4 g/dL (32.0-36.0); Mean Corpuscular Volume 86.4 fL (80.0-100.0); Mean Platelet Volume 10.5 fL (9.4-12.4); Platelet Count 44 K/uL (130-400); RDW Coefficient of Variation 12.6 % (11.5-14.5); RDW Standard Deviation 39.3 fL (36.4-46.3); Red Blood Count 2.73 M/uL (4.70-6.10)
[2024-05-15 08:47] LABS: ALC (manual) 0.17 K/uL (1.2-3.4); ANC (manual) 0.28 K/uL (1.4-6.5); Eosinophils # (manual) 0.01 K/uL (0-0.50); Eosinophils % (manual) 2 %; Lymphocytes # (manual) 0.17 K/uL (1.2-3.4); Lymphocytes % (manual) 33 %; Monocytes # (manual) 0.05 K/uL (0.11-0.59); Monocytes % (manual) 10 %; Neutrophils # (manual) 0.28 K/uL (1.40-6.50); Neutrophils % (manual) 55 %; Platelet Estimate Decreased (Normal); RBC Morphology Unremarkable; White Blood Count 0.51 K/ul (4.8-10.8)
[2024-05-15] MEDS ORDERED: ATENOLOL 50 MG TABLET PO SCH (09:00)
[2024-05-15] MEDS ORDERED: NON-FORMULARY MEDICATION (Fluticasone-Umeclidin-Vilanter [Trelegy Ellipta] 200-62.5-25 mcg INH SCH (09:00)
--- NOTE | 2024-05-15 09:40 | Orthopedic Consultation ---
Date of Consultation May 15, 2024 Assessment & Plan (1) Bimalleolar fracture of left ankle: (2) Acute UTI (urinary tract infection): (3) Neutropenia: (4) Elevated lactic acid level: (5) Hypomagnesemia: (6) AF (atrial fibrillation): (7) Sepsis: (8) Small cell lung cancer in adult: (9) Hypotension: Plan Melo is a 58-year-old gentleman with history of small cell lung cancer currently receiving chemotherapy and radiation who presented to the emergency department due to hypertension while undergoing a stress test as well as sepsis from UTI and a history of fall 3 days prior to admission wherein he sustained a bimalleolar left ankle fracture. Patient is being managed by the medical team for his UTI. The patient is quite medically complex due to his history of cancer. Orthopedics was consulted for his left ankle. On my evaluation, the patient notes that he is frustrated that some people keep asking the same questions. I explained to him in great detail his current presentation with regards to his ankle. Patient fell, he sustained a bimalleolar left ankle fracture with a low Gonzalez C fibula and medial malleolus. Explained in great detail the nature of this injury. We discussed the pathoanatomy, pathophysiology, treatment options. Considering that his ankle is mild reduced at this point, I would recommend changing his splint with a repeat close reduction. The patient requested that I return to do this later as he was quite tired upon my initial evaluation. I explained to him that the unstable nature of this ankle is something for which I would recommend surgical intervention to include open reduction internal fixation. I explained that the most important piece of the puzzle with regards to surgical timing is for soft tissue swelling. The patient's toes do demonstrate moderate edema and so I suspect that his ankle was quite swollen at this time as well. I instructed the patient on the appropriate ways to elevate his leg to help decrease soft tissue swelling, but I suspect that with appropriate elevation, his soft tissue swelli ng may be amenable to definitive fixation as soon as next week. Given the patient's history of cancer, his current chemotherapy and radiation, I explained to him that he is at a very high risk of infection while in surgery. I explained that additional risks include but are not limited to loss of life/limb, DVT, incomplete relief of pain, hardware irritation, hardware complication, hardware failure, nonunion, malunion, need for additional surgery, wound healing complications. Through shared decision making model, the patient is agreeable to proceed with surgical intervention with open reduction internal fixation medial lateral malleolus with possible open reduction internal fixation of syndesmosis once his swelling is appropriate. I will return this afternoon to place the patient into a new well-padded splint with a more appropriate reduction of the ankle mortise. He will follow-up with me as an outpatient early next week to schedule tentative fixation. For the time being, he should remain nonweightbearing on the LLE. He should be receiving DVT prophylaxis due to his nonweightbearing status. History of Present Illness Reason for Consultation: left ankle fracture Attending Physician: Sim Han MD History of Present Illness 50-year-old male currently undergoing treatment for limited stage small cell lung cancer diagnosed February 14, 2024 with a background of COPD. Small cell lung cancer is being treated by both chemotherapy and radiation therapy who presents to the emergency department with hypertensive urgency undergoing chemical stress testing. additionally, he notes he fell a few days ago and has been unable to ambulate since. in the ER he was discovered to have sustained a left ankle fracture for which orthopaedics was consulted. aditionally, he was found to likely be septic from urinary source with elevated lactic acid tachycardia and evidence of neutropenia with an ANC of 920 likely due to chemotherapy. Patient was given cefepime in the emergency department 2 L of fluid and did have some improvement. patient denies additional areas of pain other than his left ankle. Allergies Allergy/AdvReac Type Severity Reaction Status Date / Time No Known Drug Allergies Allergy Verified 05/04/24 13:25 Home Medications Medication Instructions Recorded Confirmed Type albuterol sulfate 90 mcg/actuation 1 inh inhalation QID PRN shortness 09/30/23 05/14/24 Rx aerosol inhaler of breath or wheezing #18 grams atorvastatin 10 mg tablet 10 mg PO QAM 02/12/24 05/14/24 History escitalopram oxalate 20 mg tablet 20 mg PO QAM 02/12/24 05/14/24 History losartan 100 mg tablet 100 mg PO QAM 02/12/24 05/14/24 History tamsulosin 0.4 mg capsule 0.4 mg PO QAM 02/12/24 05/14/24 History Auto Titrating CPAP #1 ea 03/06/24 05/04/24 Rx CPAP Supplies #1 ea 03/06/24 05/04/24 Rx fluticasone fur. 200 mcg-umeclid 1 inh inhalation DAILY #60 ea 03/12/24 05/14/24 Rx 62.5 mcg-vilant 25 mcg inhalat.powder (Trelegy Ellipta) pantoprazole 20 mg tablet,delayed 20 mg PO QAM #90 tabs 03/19/24 05/14/24 Rx release trazodone 100 mg tablet 100 mg PO DAILY #30 tabs 03/23/24 05/14/24 Rx prochlorperazine maleate 10 mg 10 mg PO Q6H PRN Nausea And 04/20/24 05/14/24 History tablet (Compazine) Vomiting atenolol 50 mg tablet 50 mg PO QAM #90 tabs 05/05/24 05/14/24 Rx montelukast 10 mg tablet 10 mg PO QAM #30 tabs 05/06/24 05/14/24 Rx sucralfate 1 gram tablet (Carafate) 1 g PO TID #90 tabs 05/07/24 05/14/24 Rx triamterene 37.5 1 cap PO DAILY 05/14/24 05/14/24 History mg-hydrochlorothiazide 25 mg capsule Patient History Medical History (Updated 05/14/24 @ 19:26 by Sim Han MD) IBS (irritable bowel syndrome) H. pylori infection Anxiety DONAVON (obstructive sleep apnea) Severe sleep apnea per 03/05/24 sleep study CPAP order faxed to [facility] per 03/06/24 workload communication note Emphysema lung Small cell lung cancer Recent diagnosis 01/2024 Morbid obesity Premature ventricular contraction Hx GERD without esophagitis Chronic cough History of bradycardia Hypersomnolence Allergic rhinitis Hx of gastritis Hypertension Hyperlipidemia Adjustment disorder with mixed anxiety and depressed mood Lung nodule Atherosclerotic cardiovascular disease Surgical History Port-A-Cath in place (03/12/24) Hx of tonsillectomy History of surgery History of bronchoscopy Hx of colonoscopy with polypectomy (09/2023) Hx of cardiac catheterization (2015) S/P sinus surgery S/P cholecystectomy Family History Grandmother (Maternal) Bone cancer Mother Breast cancer Hiatal hernia Endometrial cancer A-fib Father Hypertension Dementia Stroke CHF (congestive heart failure) History of lung surgery Uncle Diabetes Hypertension Stroke Grandfather Diabetes Heart disease Stroke Sister Family history of reaction to anesthesia Brother Lung cancer Sleep apnea Brother Hepatitis C Brother No problems noted. Sister Cerebral aneurysm Breast cancer Hypertension Sister No problems noted. Daughter No problems noted. Other Asthma Cancer Emphysema, unspecified Denies family history of Ovarian cancer Prostate cancer Myocardial infarction Colorectal cancer Lung disease Social History Smoking Status: Never smoker Tobacco Type: Cigarettes Age Started Using Tobacco: 24; Age Quit Using Tobacco: 46; packs per day: 2; Second Hand Exposure: No; Do You Dip or Chew Tobacco: No; Hx Alcohol Use: No (quit 35yrs ago) Hx Substance Use: No Preferred Language: Vincentian Communication Ability: Effective Visual Impairment: No Limitations Hearing Ability: Normal Alteration Inspector Required: No Beliefs That Will Affect Care: None marital status: Single Current Living Situation: Alone 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 His exposed toes demonstrate moderate soft tissue swelling. He does demonstrate active EHL and FHL function. Patient does note diminished baseline sensation in toes secondary to chemotherapy. Results & Data Vital Signs (Past 12 Hours) Vital Signs Temp Pulse Pulse Resp BP Pulse Ox O2 Del Method 05/15/24 07:49 36.6 C 60 18 106/65 99 Room Air 05/15/24 07:22 56 L 05/15/24 03:44 36.5 C 64 18 104/53 L 96 Room Air 05/14/24 22:55 72 05/14/24 22:48 36.6 C 80 18 106/78 95 Room Air Diagnostic Findings X-rays left ankle obtained by the emergency department. Based reduction were personally interpreted and reviewed. These demonstrate a bimalleolar left ankle fracture with incompletely reduced ankle mortise.
[2024-05-15] MEDS: FILGRASTIM 480 MCG/1.6 ML VIAL SC ONE (11:03)
--- NOTE | 2024-05-15 14:25 | Procedure Note ---
Procedure Note Date of Service May 15, 2024 Note Procedures performed: 1. Left ankle closed reduction and application of below knee splint Surgeon: Jerod Boone DO Indications: this is a 58 year old gentleman who fell approximately 4 days ago and sustained a left ankle fracture. he has attempted ambulation a few times but was unsuccessful. this is not the issue that prompted his evaluation in the ER, rather fevers and hypertension noted during a stress test prompted his evalu ation. XRs of his painful ankle were obtained in the ER and demonstrated a left ankle fracture with subluxation of the mortise. a splint was applied by the ER without attempted reduction. I was then consulted. Upon my evaluation the patient noted only left ankle pain. I explained to him that with his ankle subluxed, he is at a higher risk of skin irritation and blisters as well as a higher risk of delayed swelling subsidence. my recommendation is for closed reduction and application of plaster splint. he was agreeable Procedure: Informed consent was obtained for closed reduction and application of left leg splint for left ankle fracture. he understood the risks of pain, incomplete reduction, need for external fixator placement, conversion to open. We removed his left leg splint and examined his skin. He demonstrated moderate soft tissue swelling without wrinkle present. Traction and reduction maneuver were placed on the ankle until a reduction was felt. Once this was obtained, the reduction was held while a well padded AO trauma below knee splint was applied. the reduction was held while the plaster dried. post reduction imaging was obtained demonstrating concentric ankle reduction. no immediate complications noted Plan: NWB LLE Plan for ORIF L ankle 05/22/24 if soft tissues are amenable. DVT ppx okay from orthopaedic perspective multimodal pain control avoiding NSAIDs Coding
--- NOTE | 2024-05-15 14:49 | XRay Report ---
XR ankle LT 2V HISTORY: 58 years-old Male post splinting . Pain in left foot and ankle status post trauma COMPARISON: 05/14/2024 radiograph's TECHNIQUE: 2 views of the left ankle FINDINGS: Limited evaluation of the bony structures secondary to overlying casting material. Acute bimalleolar fractures redemonstrated with similar alignment. The medial malleolar fracture demonstrates no signif icant displacement. The lateral malleolar fracture demonstrates 5 mm lateral displacement. The distal tibiofibular syndesmosis is widened at 5 mm, mildly improved from prior. IMPRESSION: Casted medial and lateral malleolar fractures as above. ACT 112: Negative or not required by law. The above report was generated using voice recognition software. It may contain grammatical, syntax o r spelling errors. Electronically signed by: Emmanuel Kapoor M.D. 05/15/2024 2:48 PM
--- NOTE | 2024-05-15 15:43 | Electrocardiogram Report ---
Test Reason : Blood Pressure : */* mmHG Vent. Rate : 141 BPM Atrial Rate : 227 BPM P-R Int : * ms QRS Dur : 84 ms QT Int : 298 ms P-R-T Axes : * 55 269 degrees QTcB Int : 456 ms Atrial fibrillation with rapid ventricular response Nonspecific ST and T wave abnormality Abnormal ECG When compared with ECG of 14-May-2024 10:40, Atrial fibrillation has replaced Sinus rhythm ST now depressed in Anterior leads Nonspecific T wave abnormality, worse in Inferior leads Nonspecific T wave abnormality, worse in Lateral leads Confirmed by Mayito Alvarez ([id number]) on 05/15/2024 3:42:42 PM Referred By: Shay Cloud Confirmed By: Mayito Alvarez
--- NOTE | 2024-05-15 16:08 | Hospitalist Progress Note ---
Date of Service May 15, 2024 Assessment & Plan (1) Sepsis: Plan: Concern for sepsis from urinary source in the face of pancytopenia induced by chemotherapy Urine analysis is abnormal final urine cultures(pin point growth ) and blood cultures are pending Initiated on cefepime therapy previous ESBL E coli, changed to Ertapenem renal dose Patient's elevated lactic acid of 2.4 on presentation with concern for sepsis Patient is acute kidney injury likely due to preceding hospital illness hydration with volume from sepsis resuscitation and continuing IV fluid with reassessment of kidney function., this has improved but not resolved (2) Small cell lung cancer in adult: Plan: Undergoing chemoradiation therapy at the [facility], patient with chemotherapy-induced pancytopenia given concern for infection one dose neupogen given 05/15, (3) AF (atrial fibrillation): Plan: Patient developed atrial fibrillation rapid ventricular response was associated with cardiac discomfort on the afternoon/evening of 05/14. Employing transition of atenolol to metoprolol with additional metoprolol iv back up additional magnesium, converted to NSR 203605/14/24, since short duration will not consider AC magdiel with pancytopenia (4) Emphysema lung: Plan: Previous history of emphysema patient is maintained on Trelegy and Singulair remains on room air CPAP for DONAVON (5) Bimalleolar fracture of left ankle: Plan: er consult with Dr Boone recommends out patient treatment will sling and splint, if pt remains in can have OR repair 05/21/24 Plan for hypertension and cardiac prevention pt continues on metoprolol holding losartan for ariadna lexapro continues for depression, trazadone for sleep tamsulosin for BPH Admission and Anticipated Discharge Date Admission Date: May 14, 2024 Subjective Patient was feeling much better and seems like some of his symptoms may have been from A-fib RVR at home as with resolution of his rapid rate he has much less discomfort and anxiety. Patient converted to normal sinus rhythm at 2036 hrs. after additional magnesium and conversion from atenolol to metoprolol Physical Exam Physical Exam: Awake alert pleasant has discomfort from his left leg which is in a sling from a bimalleolar distal tib-fib fracture Card exam is regular there are no murmurs Lungs are diminished with focal air loss Abdomen NABS soft and nontender Results & Data Results & Data Vital Signs (Past 12 Hours) Vital Signs Temp Pulse Pulse Resp BP Pulse Ox O2 Del Method 05/15/24 15:16 98.1 F 73 18 101/59 L 95 Room Air 05/15/24 13:45 66 05/15/24 11:51 98.1 F 64 17 105/60 96 Room Air 05/15/24 07:49 97.9 F 60 18 106/65 99 Room Air 05/15/24 07:22 56 L Laboratory Results Reviewed CBC continued pancytopenia ordered 1 dose of Neupogen Reviewed chemistry improved ARIADNA however still significantly off from baseline PG Care Time/CCT Total # of Minutes Spent Total Time Spent with Patient: Total time spent is greater than 50% in coordination of care (as documented) at patient's floor/unit and/or counseling patient: Coding Level of Care Code 16119 SUB INP/OBS CARE 3/50MIN Diagnoses Sepsis A41.9 Small cell lung cancer in adult C34.90 AF (atrial fibrillation) I48.91 Emphysema lung J43.9 Bimalleolar fracture of left ankle S82.842A
[2024-05-16 06:36] LABS: BUN Creatinine Ratio 24.7 (10-20); Calcium 8.7 mg/dl (8.6-10.3); Magnesium 1.6 mg/dl (1.7-2.4); Potassium 3.9 mmol/L (3.5-5.1)
[2024-05-16 06:40] LABS: Hematocrit (blood only) 21.8 % (42.0-52.0); Hemoglobin 7.9 g/dl (14.0-18.0); Mean Corpuscular Hemoglobin 31.2 pg (25.0-34.0); Mean Corpuscular Hgb Conc 36.2 g/dL (32.0-36.0); Mean Corpuscular Volume 86.2 fL (80.0-100.0); Mean Platelet Volume 10.9 fL (9.4-12.4); Platelet Count 30 K/uL (130-400); RDW Coefficient of Variation 12.5 % (11.5-14.5); Red Blood Count 2.53 M/uL (4.70-6.10); White Blood Count 0.53 K/ul (4.8-10.8)
[2024-05-16 06:49] LABS: Basophils # (auto) 0.01 K/uL (0.00-0.20); Basophils % (auto) 1.9 %; Eosinophils # (auto) 0.02 K/uL (0.00-0.50); Eosinophils % (auto) 3.8 %; Lymphocytes % (auto) 37.7 %; Monocytes % (auto) 18.9 %; Neutrophils % (auto) 37.7 %; Polychromasia 1+
[2024-05-16] MEDS: ONDANSETRON INJ 2 MG/ML 2 ML VIAL IV PRN (08:36)
--- NOTE | 2024-05-16 22:45 | Hospitalist Progress Note ---
Date of Service May 16, 2024 Assessment & Plan (1) Sepsis: Plan: Concern for sepsis from urinary source in the face of pancytopenia induced by chemotherapy Urine analysis is abnormal final urine cultures(pin point growth ) and blood cultures are pending Initiated on cefepime therapy previous ESBL E coli, changed to Ertapenem renal dose Patient's elevated lactic acid of 2.4 on presentation with concern for sepsis Patient is acute kidney injury likely due to preceding hospital illness hydration with volume from sepsis resuscitation and continuing IV fluid with reassessment of kidney function., this has improved but not resolved will continue antibiotics. (2) Small cell lung cancer in adult: Plan: Undergoing chemoradiation therapy at the [facility], patient with chemotherapy-induced pancytopenia given concern for infection one dose neupogen given 05/15, (3) AF (atrial fibrillation): Plan: Patient developed atrial fibrillation rapid ventricular response was associated with cardiac discomfort on the afternoon/evening of 05/14. Employing transition of atenolol to metoprolol with additional metoprolol iv back up additional magnesium, converted to NSR 203605/14/24, since short duration will not consider AC magdiel with pancytopenia (4) Emphysema lung: Plan: Previous history of emphysema patient is maintained on Trelegy and Singulair remains on room air CPAP for DONAVON (5) Bimalleolar fracture of left ankle: Plan: er consult with Dr Boone recommends out patient treatment will sling and splint, if pt remains in can have OR repair 05/21/24 Plan for hypertension and cardiac prevention pt continues on metoprolol holding losartan for isabelle lexapro continues for depression, trazadone for sleep tamsulosin for BPH Admission and Anticipated Discharge Date Admission Date: May 14, 2024 Subjective Patient reports no new symptoms Review of Systems Review of Systems: All systems reviewed & are unremarkable except as noted in HPI & below Physical Exam Constitutional: WD/WN, vitals as above Neck: normal respiratory effort not using accesory muscles to breath Cardiovascular: normal rate on monitor. Skin: no rashes, warm and dry Neurologic: patellar DTR's 2+ bilat, sensation intact Psychiatric: A+Ox3, euthymic affect Results & Data Results & Data Vital Signs (Past 12 Hours) Vital Signs Temp Pulse Pulse Resp BP Pulse Ox O2 Del Method 05/16/24 21:10 70 135/81 05/16/24 18:26 36.9 C 73 17 90/56 L 93 Room Air 05/16/24 15:58 37.1 C 79 17 95/59 L 95 Room Air 05/16/24 14:47 66 05/16/24 11:40 37.0 C 68 20 108/61 97 Room Air PG Care Time/CCT Total # of Minutes Spent Total Time Spent with Patient: Total time spent is greater than 50% in coordination of care (as documented) at patient's floor/unit and/or counseling patient: Coding Level of Care Code 27384 SUB INP/OBS CARE 2/35MIN Diagnoses Sepsis A41.9 Small cell lung cancer in adult C34.90 AF (atrial fibrillation) I48.91 Emphysema lung J43.9 Bimalleolar fracture of left ankle S82.842A
[2024-05-17 06:43] LABS: Hematocrit (blood only) 21.4 % (42.0-52.0); Mean Corpuscular Hgb Conc 37.4 g/dL (32.0-36.0); Mean Corpuscular Volume 85.6 fL (80.0-100.0); Mean Platelet Volume 11.9 fL (9.4-12.4); Platelet Count 32 K/uL (130-400); RDW Coefficient of Variation 12.6 % (11.5-14.5); RDW Standard Deviation 38.5 fL (36.4-46.3); White Blood Count 0.64 K/ul (4.8-10.8)
[2024-05-17 06:50] LABS: BUN Creatinine Ratio 19.9 (10-20); Calcium 8.7 mg/dl (8.6-10.3); Creatinine Clr Calc Pharmacy 60.6 ml/min; Potassium 3.9 mmol/L (3.5-5.1)
[2024-05-17 07:01] LABS: Basophils # (auto) 0.02 K/uL (0.00-0.20); Basophils % (auto) 3.1 %; Dohle Bodies 2+; Eosinophils # (auto) 0.03 K/uL (0.00-0.50); Eosinophils % (auto) 4.7 %; Immature Granulocytes # (auto) 0.03 K/uL (0.01-0.20); Immature Granulocytes % (auto) 4.7 %; Lymphocytes # (auto) 0.29 K/uL (1.20-3.40); Lymphocytes % (auto) 45.3 %; Monocytes # (auto) 0.18 K/uL (0.11-0.59); Monocytes % (auto) 28.1 %; Neutrophils # (auto) 0.09 K/uL (1.40-6.50); Neutrophils % (auto) 14.1 %
--- NOTE | 2024-05-17 21:36 | Hospitalist Progress Note ---
Date of Service May 17, 2024 Assessment & Plan (1) Sepsis: Plan: Concern for sepsis from urinary source in the face of pancytopenia induced by chemotherapy Urine analysis is abnormal final urine cultures(pin point growth ) and blood cultures are pending Initiated on cefepime therapy previous ESBL E coli, changed to Ertapenem renal dose Patient's elevated lactic acid of 2.4 on presentation with concern for sepsis Patient with acute kidney injury likely due to preceding hospital illness hydration with volume from sepsis resuscitation and continuing IV fluid with reassessment of kidney function., this has improved but not resolved will continue antibiotics. (2) Small cell lung cancer in adult: Plan: Undergoing chemoradiation therapy at the [facility], patient with chemotherapy-induced pancytopenia given concern for infection one dose neupogen given 05/15, WBC slowly improving at 0.64 (3) AF (atrial fibrillation): Plan: Patient developed atrial fibrillation rapid ventricular response was associated with cardiac discomfort on the afternoon/evening of 05/14. Employing transition of atenolol to metoprolol with additional metoprolol iv back up additional magnesium, converted to NSR 203605/14/24, since short duration will not consider AC magdiel with pancytopenia HR has been controlled since (4) Emphysema lung: Plan: Previous history of emphysema patient is maintained on Trelegy and Singulair remains on room air CPAP for DONAVON (5) Bimalleolar fracture of left ankle: Plan: er consult with Dr Boone recommends out patient treatment will sling and splint, if pt remains inhouse can have OR repair 05/21/24 Plan for hypertension and cardiac prevention pt continues on metoprolol holding losartan for isabelle lexapro continues for depression, trazadone for sleep tamsulosin for BPH Admission and Anticipated Discharge Date Admission Date: May 14, 2024 Subjective Patient states he continues to have fatigue and dizziness when he sits up or stands up. Physical Exam Constitutional: WD/WN, vitals as above Respiratory: normal respiratory effort, lungs clear to auscultation Cardiovascular: RRR, no murmur, no edema Skin: no rashes, warm and dry Neurologic: patellar DTR's 2+ bilat, sensation intact Psychiatric: A+Ox3, euthymic affect Results & Data Results & Data Vital Signs (Past 12 Hours) Vital Signs Temp Pulse Pulse Resp BP Pulse Ox O2 Del Method 05/17/24 19:43 37.0 C 76 18 111/71 95 Room Air 05/17/24 15:21 36.7 C 72 19 126/81 96 Room Air 05/17/24 14:16 70 05/17/24 11:05 36.6 C 63 18 104/68 97 Room Air PG Care Time/CCT Total # of Minutes Spent Total Time Spent with Patient: Total time spent is greater than 50% in coordination of care (as documented) at patient's floor/unit and/or counseling patient: Coding Level of Care Code 91067 SUB INP/OBS CARE 2/35MIN Diagnoses Sepsis A41.9 Small cell lung cancer in adult C34.90 AF (atrial fibrillation) I48.91 Emphysema lung J43.9 Bimalleolar fracture of left ankle S82.842A
[2024-05-18 06:44] LABS: Hematocrit (blood only) 22.2 % (42.0-52.0); Hemoglobin 8.2 g/dl (14.0-18.0); Mean Corpuscular Hemoglobin 31.7 pg (25.0-34.0); Mean Corpuscular Hgb Conc 36.9 g/dL (32.0-36.0); Mean Corpuscular Volume 85.7 fL (80.0-100.0); Mean Platelet Volume 11.4 fL (9.4-12.4); Nucleated RBC # (auto) 0.02 K/uL (0.00-0.12); Nucleated RBC % (auto) 2.1 %; Platelet Count 46 K/uL (130-400); RDW Coefficient of Variation 12.5 % (11.5-14.5); RDW Standard Deviation 38.5 fL (36.4-46.3); Red Blood Count 2.59 M/uL (4.70-6.10); White Blood Count 0.96 K/ul (4.8-10.8)
[2024-05-18 07:06] LABS: BUN Creatinine Ratio 16.3 (10-20); Calcium 8.9 mg/dl (8.6-10.3); Creatinine Clr Calc Pharmacy 65.5 ml/min; Potassium 3.8 mmol/L (3.5-5.1)
[2024-05-18 07:22] LABS: Basophils # (auto) 0.02 K/uL (0.00-0.20); Basophils % (auto) 2.1 %; Eosinophils # (auto) 0.05 K/uL (0.00-0.50); Eosinophils % (auto) 5.2 %; Immature Granulocytes # (auto) 0.03 K/uL (0.01-0.20); Immature Granulocytes % (auto) 3.1 %; Lymphocytes # (auto) 0.36 K/uL (1.20-3.40); Lymphocytes % (auto) 37.5 %; Monocytes # (auto) 0.44 K/uL (0.11-0.59); Monocytes % (auto) 45.8 %; Neutrophils # (auto) 0.06 K/uL (1.40-6.50); Neutrophils % (auto) 6.3 %; Polychromasia 1+
--- NOTE | 2024-05-18 07:59 | Hospitalist Progress Note ---
Date of Service May 18, 2024 Assessment & Plan (1) Sepsis: Plan: 58-year-old male diagnosed with small cell lung cancer February 13 on chemotherapy and radiation therapy presents with pancytopenia, concern for sepsis from urinary source, bimalleolar fracture of left ankle. He developed A- fib RVR which was converted with magnesium and transition of atenolol to Toprol concern for sepsis from urinary source in the face of pancytopenia induced by chemotherapy Urine analysis is abnormal, final urine cultures(more than 3 organisms ) and blood cultures are pending alternatively could be tiflitis, with neutropenia, given nuepogen 05/15, 05/18 Initiated on cefepime therapy previous ESBL E coli, changed to Ertapenem renal dose Patient's elevated lactic acid of 2.4 on presentation with concern for sepsis Patient with acute kidney injury- resolved will continue antibiotics while neutropenic. (2) Small cell lung cancer in adult: Plan: Undergoing chemoradiation therapy at the [facility], patient with chemotherapy-induced pancytopenia given concern for infection one dose neupogen given 05/15, 05/18 WBC slowly improving but till with low ANC (3) AF (atrial fibrillation): Plan: Patient developed atrial fibrillation rapid ventricular response was associated with cardiac discomfort on the afternoon/evening of 05/14. Employing transition of atenolol to metoprolol with additional metoprolol iv back up additional magnesium, converted to NSR 203605/14/24, since short duration will not consider AC magdiel with pancytopenia HR has been controlled since and has remained in sinus rhythm (4) Emphysema lung: Plan: Previous history of emphysema patient is maintained on Trelegy and Singulair remains on room air CPAP for DONAVON (5) Bimalleolar fracture of left ankle: Plan: er consult with Dr Boone recommends out patient treatment will sling and splint, if pt remains inhouse can have OR repair 05/22/24 Plan for hypertension and cardiac prevention pt continues on metoprolol holding losartan for isabelle lexapro continues for depression, trazadone for sleep tamsulosin for BPH Admission and Anticipated Discharge Date Admission Date: May 14, 2024 Subjective Patient has no complaints or problems at this time is concerned about final disposition is concerned about his ability to take care of himself at home given his fracture leg If he has a choice he will consider [facility] Attempts to shower were difficult today due to patient's BMI of 41 Physical Exam Physical Exam: Awake alert appropriate decreased breath sounds at bilateral lung bases worse on the left He has a splint placed on his left leg with good distal capillary refill and sensation Card exam is regular with no recurrence of his atrial fibrillation Results & Data Results & Data Vital Signs (Past 12 Hours) Vital Signs Temp Pulse Pulse Resp BP BP Pulse Ox 05/18/24 07:27 97.5 F L 63 16 116/69 93 05/18/24 03:53 97.5 F L 65 18 103/65 96 05/18/24 00:06 111/72 05/17/24 23:35 97.9 F 75 16 96/59 L 93 05/17/24 21:59 56 L O2 Del Method 05/18/24 07:27 Room Air 05/18/24 03:53 Room Air 05/18/24 00:06 05/17/24 23:35 Room Air 05/17/24 21:59 Laboratory Results Reviewed CBC and differential remains neutropenic Reviewed chemistryAKI is resolving downgrade to lower level of care all orders and meds reviewed PG Care Time/CCT Total # of Minutes Spent Total Time Spent with Patient: Total time spent is greater than 50% in coordination of care (as documented) at patient's floor/unit and/or counseling patient: Coding Level of Care Code 23004 SUB INP/OBS CARE 3/50MIN Diagnoses Sepsis A41.9 Small cell lung cancer in adult C34.90 AF (atrial fibrillation) I48.91 Emphysema lung J43.9 Bimalleolar fracture of left ankle S82.842A
[2024-05-18] MEDS: FILGRASTIM 480 MCG/1.6 ML VIAL SC ONE (11:28)
--- NOTE | 2024-05-18 19:59 | Orthopedic Progress Note ---
Date of Service May 18, 2024 Assessment & Plan (1) Bimalleolar fracture of left ankle: (2) Acute UTI (urinary tract infection): (3) Neutropenia: (4) Elevated lactic acid level: (5) Hypomagnesemia: (6) AF (atrial fibrillation): (7) Sepsis: (8) Small cell lung cancer in adult: (9) Hypotension: Plan Melo is a 58-year-old gentleman with history of small cell lung cancer currently receiving chemotherapy and radiation who presented to the emergency department due to hypertension while undergoing a stress test as well as sepsis from UTI and a history of fall 3 days prior to admission wherein he sustained a bimalleolar left ankle fracture. Patient is being managed by the medical team for his UTI. The patient is quite medically complex due to his history of cancer. Orthopedics was consulted for his left ankle. I explained to him once again in great detail his current presentation with regards to his ankle. When the patient fell, he sustained a bimalleolar left ankle fracture with a low Gonzalez C fibula and medial malleolus. Explained in great detail the nature of this injury. We discussed the pathoanatomy, pathophysiology, treatment options. I explained to him that the unstable nature of this ankle fracute is something for which I would recommend surgical intervention to include open reduction internal fixation. I explained that the most important piece of the puzzle with regards to surgical timing is for soft tissue swelling. The patient notes difficulty with regards to elevating his lower extremity and this is making his soft tissues persistently swollen. I instructed the patient again on the appropriate ways to elevate his leg to help decrease soft tissue swelling. his leg should be elevated greater than the level of his heart and his heel should be floated. Given the patient's history of cancer, his current chemotherapy and radiation, I explained to him that he is at a very high risk of infection from surgery. I explained that additional risks include but are not limited to loss of life/limb, DVT, incomplete relief of pain, hardware irritation, hardware complication, hardware failure, nonunion, malunion, need for additional surgery, wound healing complications. The benefits of surgery are a more stable reduction of the ankle mortise to allow bony healing and sooner return to function. Through shared decision making model, the patient is agreeable to proceed with surgical intervention with open reduction internal fixation medial and lateral malleolus with possible open reduction internal fixation of syndesmosis once his swelling is appropriate. I will continue to monitor his swelling throughout the week, but I am hopeful that his swelling abates enough to allow safer soft tissue passage by this Saturday05/22/24. If the patient is to discharge prior to this Saturday, I would see him in the office this 05/21/24 for final soft tissue check. If he remains in the hospital this week, I will continue to monitor his swelling with plans of ORIF of his left ankle this Saturday. For the time being, he should remain nonweightbearing on the LLE. He should be receiving DVT prophylaxis due to his nonweightbearing status. Admission and Anticipated Discharge Date Admission Date: May 14, 2024 Subjective Patient seen and evaluated this morning. he notes he has been compliant with NWB, but it has been difficult for him to keep his leg elevated. Review of Systems Review of Systems: All systems reviewed & are unremarkable except as noted in HPI & below Physical Exam Physical Exam: Patient's left lower extremity is splinted. His exposed toes demonstrate moderate soft tissue swelling. He does demonstrate active EHL and FHL function. Results & Data Vital Signs (Past 12 Hours) Vital Signs Temp Pulse Resp BP BP Pulse Ox O2 Del Method 05/18/24 19:38 37.0 C 62 18 111/67 96 Room Air 05/18/24 10:55 36.8 C 61 16 111/70 96 Room Air Diagnostic Findings no new imaging
--- NOTE | 2024-05-19 07:59 | Hospitalist Progress Note ---
Date of Service May 19, 2024 Assessment & Plan (1) Sepsis: Plan: 58-year-old male diagnosed with small cell lung cancer February 14 2024 on chemotherapy and radiation therapy presents with pancytopenia, concern for sepsis from urinary source versus gut translocation, bimalleolar fracture of left ankle. He developed A-fib RVR which was converted with magnesium and transition of atenolol to Toprol concern for sepsis from urinary source in the face of pancytopenia induced by chemotherapy Urine analysis is abnormal, final urine cultures(more than 3 organisms ) and blood cultures are negative to date alternatively could be typhlitis, with neutropenia, given nuepogen 05/15, 05/18 no longer neutropenic Initiated on cefepime therapy previous ESBL E coli, changed to Ertapenem renal dose completed 5 days therapy Patient's elevated lactic acid of 2.4 on presentation Patient with acute kidney injury- resolved (2) Small cell lung cancer in adult: Plan: Undergoing chemoradiation therapy at the [facility], patient with chemotherapy-induced pancytopenia given concern for infection one dose neupogen given 05/15, 05/18 WBC slowly improving but till with low ANC (3) AF (atrial fibrillation): Plan: Patient developed atrial fibrillation rapid ventricular response was associated with cardiac discomfort on the afternoon/evening of 05/14. Employing transition of atenolol to metoprolol with additional metoprolol iv back up additional magnesium, converted to NSR 203605/14/24, since short duration will not consider AC magdiel with pancytopenia HR has been controlled since and has remained in sinus rhythm (4) Emphysema lung: Plan: Previous history of emphysema patient is maintained on Trelegy and Singulair remains on room air CPAP for DONAVON (5) Bimalleolar fracture of left ankle: Plan: er consult with Dr Boone recommends out patient treatment will sling and splint, if pt remains inhouse can have OR repair 05/22/24 Plan for hypertension and cardiac prevention pt continues on metoprolol holding losartan for isabelle lexapro continues for depression, trazadone for sleep tamsulosin for BPH Admission and Anticipated Discharge Date Admission Date: May 14, 2024 Subjective Patient initially was trying to go home but he cannot walk with crutches because he is too deconditioned and subsequently he cannot go home to a safe disposition and will stay in our facility Pain is controlled He has no shortness of breath Physical Exam Physical Exam: Patient is awake alert cardiac sounds regular lungs are clear but diminished at the bases he is long-leg splint on the left Results & Data Results & Data Vital Signs (Past 12 Hours) Vital Signs Temp Pulse Resp BP Pulse Ox O2 Del Method 05/19/24 07:51 98.6 F 65 19 102/58 L 97 Room Air 05/19/24 03:33 97.9 F 61 16 96/54 L 95 Room Air Laboratory Results Reviewed CBC reviewed chemistry PG Care Time/CCT Total # of Minutes Spent Total Time Spent with Patient: Total time spent is greater than 50% in coordination of care (as documented) at patient's floor/unit and/or counseling patient: Coding Level of Care Code 30553 SUB INP/OBS CARE 3/50MIN Diagnoses Sepsis A41.9 Small cell lung cancer in adult C34.90 AF (atrial fibrillation) I48.91 Emphysema lung J43.9 Bimalleolar fracture of left ankle S82.842A
[2024-05-19 10:52] LABS: BUN Creatinine Ratio 15.3 (10-20); Creatinine Clr Calc Pharmacy 57.4 ml/min; Potassium 3.8 mmol/L (3.5-5.1)
[2024-05-19 11:35] LABS: Hematocrit (blood only) 25.4 % (42.0-52.0); Hemoglobin 9.3 g/dl (14.0-18.0); Mean Corpuscular Hemoglobin 31.3 pg (25.0-34.0); Mean Corpuscular Hgb Conc 36.6 g/dL (32.0-36.0); Mean Corpuscular Volume 85.5 fL (80.0-100.0); Mean Platelet Volume 11.1 fL (9.4-12.4); Nucleated RBC # (auto) 0.09 K/uL (0.00-0.12); Nucleated RBC % (auto) 2.2 %; Platelet Count 64 K/uL (130-400); RDW Coefficient of Variation 12.9 % (11.5-14.5); RDW Standard Deviation 38.4 fL (36.4-46.3); Red Blood Count 2.97 M/uL (4.70-6.10); White Blood Count 4.09 K/ul (4.8-10.8)
[2024-05-19 11:37] LABS: ALC (manual) 1.47 K/uL (1.2-3.4); ANC (manual) 1.23 K/uL (1.4-6.5); Basophils # (manual) 0.12 K/uL (0-0.2); Basophils % (manual) 3 %; Blast # (manual) 0.04 K/uL (0-0); Blast Cells % (manual) 1 %; Eosinophils # (manual) 0.12 K/uL (0-0.50); Eosinophils % (manual) 3 %; Lymphocytes # (manual) 1.47 K/uL (1.2-3.4); Lymphocytes % (manual) 36 %; Metamyelocytes % (manual) 5 %; Monocytes % (manual) 17 %; Myelocytes # (manual) 0.12 K/uL (0-0); Myelocytes % (manual) 3 %; Neutrophils # (manual) 1.23 K/uL (1.40-6.50); Neutrophils % (manual) 30 %; Polychromasia 1+; Promyelocytes # (manual) 0.08 K/uL (0-0); Promyelocytes % (manual) 2 %
[2024-05-20] MEDS ORDERED: Nursing to Pharmacy Communication SCH (11:15)
[2024-05-20] MEDS: ONDANSETRON 4 MG OD TAB PO SCH (11:28)
[2024-05-20] MEDS ORDERED: ONDANSETRON 4 MG OD TAB PO SCH (14:00)
--- NOTE | 2024-05-20 15:15 | Hospitalist Progress Note ---
Date of Service May 20, 2024 Assessment & Plan (1) Sepsis: Plan: Suspected on admission. Now resolved. (2) Small cell lung cancer in adult: Plan: Undergoing chemoradiation therapy at the [facility]. Now with chemotherapy-induced pancytopenia. Neupogen given 05/15, 05/18. White blood cell count is slowly improving. Serial labs (3) AF (atrial fibrillation): Plan: Patient developed atrial fibrillation with rapid ventricular response and associated cardiac discomfort on the afternoon/evening of 05/14. Atenolol switched to metoprolol with additional metoprolol iv back up as needed. He subsequently converted to NSR during the evening of 05/14/24. Telemetry (4) Emphysema lung: Plan: History of COPD and emphysema. Usual medications include Trelegy and Singulair. Currently on room air. He uses he uses CPAP for DONAVON (5) Bimalleolar fracture of left ankle: Plan: Left ankle currently immobilized. Appreciate orthopedic consultation and recommendations. Surgical repair planned for May 22 Plan Possible short-term SNF placement at discharge Admission and Anticipated Discharge Date Admission Date: May 14, 2024 Subjective Alert and oriented. No new problems. He is awaiting surgical intervention on the left ankle fracture on May 22. He remains in normal sinus rhythm. A atenolol has been switched to metoprolol. Review of Systems 2 Review of Systems: Constitutionalno fever or chills ENTno blurred vision, no double vision, no epistaxis, no sore throat Respiratoryno cough, no wheezing, no shortness of breath Cardiacno palpitations, no chest pain, no syncope Manfred nausea, vomiting, diarrhea, melena, hematochezia GUno urinary retention, no urinary incontinence, no dysuria, no hematuria Musculoskeletalleft ankle discomfort from fracture. No muscle tenderness Skinno bruising, no rashes, no pruritus Neurono isolated weakness, no paresthesia, no weakness Psychno depression, no anxiety Physical Exam 2 Physical Exam: General-alert and oriented x3, no fever, no chills HEENT-head atraumatic and normocephalic, pupils equal and reactive to light, extraocular muscles intact Neck-no lymphadenopathy or thyromegaly, trachea midline Chest-clear to auscultation. No rales, wheezing or rhonchi Cardiac-regular rate and rhythm, normal S1 and S2 Abdomen-normal bowel sounds, no hepatosplenomegaly Extremities-left ankle has been immobilized. Neuro-cranial nerves II through XII intact, motor and sensory function within normal limits, strength symmetrical, no focal deficits Psych-normal affect, normal mood Results & Data Results & Data Vital Signs (Past 12 Hours) Vital Signs Temp Pulse Resp BP Pulse Ox O2 Del Method 05/20/24 07:38 37.3 C 59 L 19 150/65 H 91 Room Air Laboratory Results 05/19/24 10:04 05/19/24 10:04 PG Care Time/CCT Total # of Minutes Spent Total Time Spent with Patient: Total time spent is greater than 50% in coordination of care (as documented) at patient's floor/unit and/or counseling patient: Coding Level of Care Code 39076 SUB INP/OBS CARE 2/35MIN Diagnoses Sepsis A41.9 Small cell lung cancer in adult C34.90 AF (atrial fibrillation) I48.91 Emphysema lung J43.9 Bimalleolar fracture of left ankle S82.842A
--- NOTE | 2024-05-21 08:13 | Orthopedic Progress Note ---
Date of Service May 21, 2024 Assessment & Plan (1) Bimalleolar fracture of left ankle: (2) Acute UTI (urinary tract infection): (3) Neutropenia: (4) Elevated lactic acid level: (5) Hypomagnesemia: (6) AF (atrial fibrillation): (7) Sepsis: (8) Small cell lung cancer in adult: (9) Hypotension: Plan Melo is a 58-year-old gentleman with history of small cell lung cancer currently receiving chemotherapy and radiation who presented to the emergency department due to hypertension while undergoing a stress test as well as sepsis suspected to be secondary to UTI and a history of fall 3 days prior to admission wherein he sustained a bimalleolar left ankle fracture. Patients sepsis is now resolved. The patient is quite medically complex due to his history of cancer. Orthopedics was consulted for his left ankle. I explained to him once again in great detail his current presentation with regards to his ankle. When the patient fell, he sustained a bimalleolar left ankle fracture with a low Gonzalez C fibula and medial malleolus. Explained in great detail the nature of this injury. We discussed the pathoanatomy, pathophysiology, treatment options. I explained to him that the unstable nature of this ankle fracture is something for which I would recommend surgical intervention to include open reduction internal fixation. I explained that the most important piece of the puzzle with regards to surgical timing is for soft tissue swelling. I examined his ankle today and his swelling has begun to adriane and with continued elevation, I suspect his swelling will be appropriate tomorrow. For the time being, he should continue to elevate his limb - his leg should be elevated greater than the level of his heart and his heel should be floated. Given the patient's history of cancer, his current chemotherapy and radiation, I explained to him that he is at a very high risk of infection from surgery. I explained that additional risks include but are not limited to loss of life/limb, DVT, incomplete relief of pain, hardware irritation, hardware complication, hardware failure, nonunion, malunion, need for additional surgery, wound healing complications, iatrogenic injury to bone/nerve/tendon/vessel, post traumatic osteoarthrosis. The benefits of surgery are a more stable and reproducible reduction of the ankle mortise to allow bony healing and sooner return to function. Through shared decision making model, the patient is agreeable to proceed with surgical intervention with open reduction internal fixation medial and lateral malleolus with possible open reduction internal fixation of syndesmosis once his swelling is appropriate. The patient expressed understanding to his elevated surgical risk. No promises or guarantees were stated or implied. Plan for ORIF left ankle bimalleolar ankle fracture and possible ORIF syndesmosis tomorrow, 05/22/24 NPO after midnight Nonweightbearing on the LLE Hold DVT ppx tomorrow morning Admission and Anticipated Discharge Date Admission Date: May 14, 2024 Subjective Patient resting comfortably. No acute complaints. has remained inpatient for ORIF ankle Physical Exam Physical Exam: Patient's left lower extremity is splinted. His exposed toes demonstrate mild soft tissue swelling. He does demonstrate active EHL and FHL function. anterior ankle skin examined and appears with mild swelling. Results & Data Vital Signs (Past 12 Hours) Vital Signs Temp Pulse Resp BP Pulse Ox O2 Del Method 05/21/24 07:33 36.5 C 70 19 103/65 95 Room Air 05/21/24 02:48 36.8 C 64 18 108/67 95 Room Air
--- NOTE | 2024-05-21 09:43 | Hospitalist Progress Note ---
Date of Service May 21, 2024 Assessment & Plan (1) Sepsis: Plan: 58-year-old male diagnosed with small cell lung cancer February 14 2024 on chemotherapy and radiation therapy presents with pancytopenia, concern for sepsis from urinary source versus gut translocation, bimalleolar fracture of left ankle. He developed A-fib RVR which was converted with magnesium and transition of atenolol to Toprol since physiologic stressor is resolved could return to atenolol at dc. surgical repair 05/22/24, will need to discuss possible postponing of chemo due to rehab concern for sepsis from urinary source in the face of pancytopenia induced by chemotherapy Urine analysis is abnormal, final urine cultures(more than 3 organisms ) and blood cultures are negative to date alternatively could be typhlitis, with neutropenia, given nuepogen 05/15, 05/18 no longer neutropenic Initiated on cefepime therapy previous ESBL E coli, changed to Ertapenem renal dose completed 5 days therapy Patient's elevated lactic acid of 2.4 on presentation Patient with acute kidney injury- resolved (2) Small cell lung cancer in adult: Plan: Undergoing chemoradiation therapy at [facility], patient with chemotherapy-induced pancytopenia given concern for infection one dose neupogen given 05/15, 05/18 (3) AF (atrial fibrillation): Plan: Patient developed atrial fibrillation rapid ventricular response was associated with cardiac discomfort on the afternoon/evening of 05/14. Employing transition of atenolol to metoprolol with additional metoprolol iv back up additional magnesium, converted to NSR 203605/14/24, since short duration will not consider AC magdiel with pancytopenia HR has been controlled since and has remained in sinus rhythm-return to atenolol on discharge (4) Emphysema lung: Plan: Previous history of emphysema patient is maintained on Trelegy and Singulair remains on room air CPAP for DONAVON (5) Bimalleolar fracture of left ankle: Plan: er consult with Dr Boone recommends out patient treatment will sling and splint, OR repair 05/22/24 Plan for hypertension and cardiac prevention pt continues on metoprolol holding losartan for isabelle lexapro continues for depression, trazadone for sleep tamsulosin for BPH Admission and Anticipated Discharge Date Admission Date: May 14, 2024 Subjective pt c/o some palpitations looking forward to ankle repair and considering rehab afterward surgery may created need to modify chemotherapy schedule Physical Exam Physical Exam: Patient is awake alert he is long-leg splint on the left Results & Data Results & Data Vital Signs (Past 12 Hours) Vital Signs Temp Pulse Resp BP Pulse Ox O2 Del Method 05/21/24 09:00 Room Air 05/21/24 07:33 97.7 F 70 19 103/65 95 Room Air 05/21/24 02:48 98.2 F 64 18 108/67 95 Room Air PG Care Time/CCT Total # of Minutes Spent Total Time Spent with Patient: Total time spent is greater than 50% in coordination of care (as documented) at patient's floor/unit and/or counseling patient: Coding Level of Care Code 75926 SUB INP/OBS CARE 3/50MIN Diagnoses Sepsis A41.9 Small cell lung cancer in adult C34.90 AF (atrial fibrillation) I48.91 Emphysema lung J43.9 Bimalleolar fracture of left ankle S82.842A
[2024-05-22] MEDS ORDERED: ROPIVACAINE 0.5% 5 MG/ML 30 ML VIAL ONE (06:23)
[2024-05-22] MEDS ORDERED: HYDROmorphone INJ 1 MG/ML SYRINGE IV PRN (07:01)
[2024-05-22] MEDS ORDERED: ATROPINE SULFATE 0.1 MG/ML 10ML SYR IV PRN (07:01)
[2024-05-22] MEDS ORDERED: ePHEDrine sulfate 50 MG/ML AMP IV PRN (07:01)
[2024-05-22] MEDS ORDERED: Nursing to Pharmacy Communication SCH (07:30)
[2024-05-22] MEDS ORDERED: MIDAZOLAM HCL 1 MG/ML 2ML VIAL ONE (07:44)
[2024-05-22] MEDS ORDERED: PROPOFOL IV EMULSION 10 MG/ML 20 ML VIAL IV ONE ×2 (07:44→10:18)
[2024-05-22] MEDS ORDERED: fentaNYL citrate PF 100 MCG/2 ML VIAL ONE (07:45)
[2024-05-22] MEDS ORDERED: DEXAMETHASONE SOD INJ 4 MG/ML VIAL ONE (07:45)
[2024-05-22] MEDS ORDERED: ONDANSETRON INJ 2 MG/ML 2 ML VIAL ONE (07:45)
[2024-05-22] MEDS ORDERED: ROCURONIUM BROMIDE 10 MG/ML 5 ML VIAL IV ONE (07:58)
--- NOTE | 2024-05-22 07:58 | History & Physical Bridge Note ---
Date of Service May 22, 2024 History & Physical Bridge Note I have examined the patient, reviewed the History & Physical and in the interval since the performance of the History & Physical I have noted the following changes of clinical significance: Melo is a 58-year-old gentleman with history of small cell lung cancer currently receiving chemotherapy and radiation who presented to the emergency department due to hypertension while undergoing a stress test as well as sepsis suspected to be secondary to UTI and a history of fall 3 days prior to admission wherein he sustained a bimalleolar left ankle fracture. Patients sepsis is now resolved. his significantly low WBC count has also resolved. The patient is quite medically complex due to his history of cancer. Orthopedics was consulted for his left ankle. I explained to him once again in great detail his current presentation with regards to his ankle. When the patient fell, he sustained a bimalleolar left ankle fracture with a low Gonzalez C fibula and medial malleolus. Explained in great detail the nature of this injury. We discussed the pathoanatomy, pathophysiology, treatment options. I explained to him that the unstable nature of this ankle fracture is something for which I would recommend surgical intervention to include open reduction internal fixation. Given the patient's history of cancer, his current chemotherapy and radiation, his recent UTI and his low WBC count, I explained to him that he is at a very high risk of infection from surgery. I explained that additional risks include but are not limited to loss of life/limb, DVT, incomplete relief of pain, hardware irritation, hardware complication, hardware failure, nonunion, malunion, need for additional surgery, wound healing complications, iatrogenic injury to bone/nerve/tendon/vessel, post traumatic osteoarthrosis. The benefits of surgery are a more stable and reproducible reduction of the ankle mortise to allow bony healing and sooner return to function. Through shared decision making model, the patient is agreeable to proceed with surgical intervention with open reduction internal fixation medial and lateral malleolus with possible open reduction internal fixation of syndesmosis. At this point considering he has cleared his UTI, his severely low WBC count has improved and his swelling has abated, I believe he is optimized for operative management given his presentation. The patient expressed understanding to his elevated surgical risk and has agreed to proceed with surgery. No promises or guarantees were stated or implied. Plan for ORIF left ankle bimalleolar ankle fracture and possible ORIF syndesmosis
[2024-05-22] MEDS: LR 15ML/HR IV SCH (08:00)
[2024-05-22] MEDS: ceFAZolin 3000MG 3,000 MG/72.5 ML BAG IV SCH (08:48)
[2024-05-22] MEDS ORDERED: SUGAMMADEX SODIUM 200 MG/2 ML VIAL IV ONE (09:50)
--- NOTE | 2024-05-22 11:24 | Post Operative Brief Note ---
Immediate Post Op Note Date of Surgery May 22, 2024 Pre & Post Diagnosis Operation Date: 05/22/24 08:45 Pre-Op Diagnosis: Bimalleolar fracture of left ankle Post-Op Diagnosis: Bimalleolar fracture of left ankle I identified the patient and participated in the time-out.: Yes Procedure Operation Date: 05/22/24 08:45 Actual Procedures p Left Open Reduction Internal Fixation Bimalleolar Ankle Fracture, Physician directed floroscopy >1hr, Application of Below Knee Splint(Left) - Jerod Boone DO 1. Open reduction internal fixation left bimalleolar ankle fracture 2. Physician directed fluoroscopy greater than 1 hour 3. Application below-knee splint, left Surgeon Jerod Boone DO Furnace Packer None Estimated Blood Loss 25 Findings Consistent with Post-Op Diagnosis Fluids See anesthesia record Complications None immediately apparent Disposition Disposition: Recovery Room Overlapping Procedure I was present for: the critical portions of procedure. (The entire case)
[2024-05-22] MEDS: fentaNYL citrate PF 100 MCG/2 ML VIAL IV PRN (11:30)
[2024-05-22] MEDS: ONDANSETRON INJ 2 MG/ML 2 ML VIAL IV PRN (11:37)
--- NOTE | 2024-05-22 11:49 | Operative Report ---
Post Operative Report Pre & Post Diagnosis Operation Date: 05/22/24 08:45 Pre-Op Diagnosis: Bimalleolar fracture of left ankle Post-Op Diagnosis: Bimalleolar fracture of left ankle I identified the patient and participated in the time-out.: Yes Procedure Operation Date: 05/22/24 08:45 Actual Procedures p Left Open Reduction Internal Fixation Bimalleolar Ankle Fracture, Physician directed floroscopy >1hr, Application of Below Knee Splint(Left) - Jerod Boone DO 1. Open reduction internal fixation of left bimalleolar ankle fracture 2. Physician directed fluoroscopy greater than 1 hour 3. Application below-knee splint, left Surgeon Jerod Boone DO Ski Production Supervisor None Estimated Blood Loss 25 Findings Consistent with Post-Op Diagnosis Specimens none Anesthesia Type General Complications none immediately apparent Disposition Disposition: Recovery Room Indications Melo is a 58-year-old gentleman with history of small cell lung cancer currently receiving chemotherapy and radiation who presented to the emergency department due to hypertension while undergoing a stress test as well as sepsis suspected to be secondary to UTI and a history of fall 3 days prior to admission wherein he sustained a bimalleolar left ankle fracture. Patients sepsis is now resolved. his significantly low WBC count has also resolved. The patient is quite medically complex due to his history of cancer. Orthopedics was consulted for his left ankle. I explained to him once again in great detail his current presentation with regards to his ankle. When the patient fell, he sustained a bimalleolar left ankle fracture with a low Gonzalez C fibula and medial malleolus. Explained in great detail the nature of this injury. We discussed the pathoanatomy, pathophysiology, treatment options. I explained to him that the unstable nature of this ankle fracture is something for which I would recommend surgical intervention to include open reduction internal fixation. Given the patient's history of cancer, his current chemotherapy and radiation, his recent UTI and his low WBC count, I explained to him that he is at a very high risk of infection from surgery. I explained that additional risks include but are not limited to loss of life/limb, DVT, incomplete relief of pain, hardware irritation, hardware complication, hardware failure, nonunion, malunion, need for additional surgery, wound healing complications, iatrogenic injury to bone/nerve/tendon/vessel, post traumatic osteoarthrosis. The benefits of surgery are a more stable and reproducible reduction of the ankle mortise to allow bony healing and sooner return to function. Through shared decision making model, the patient is agreeable to proceed with surgical intervention with open reduction internal fixation medial and lateral malleolus with possible open reduction internal fixation of syndesmosis. At this point considering he has cleared his UTI, his severely low WBC count has improved and his swelling has abated, I believe he is optimized for operative management given his presentation. The patient expressed understanding to his elevated surgical risk and has agreed to proceed with surgery. No promises or guarantees were stated or implied. Plan for ORIF left ankle bimalleolar ankle fracture and possible ORIF syndesmosis Description of Procedure After informed consent was obtained, the patient was correctly identified in the preoperative holding suite, the operative site was marked with the surgeon's initials, the date of surgery, and the word yes. The patient was then taken to the operative suite. The department of anesthesia administered General anesthesia. The patient was transferred from the [facility] to the operative table. All bony prominences were well-padded. Briefing and timeout was performed. All implants were available and sterile at the time. BRIEFING AND DEBRIEFING: Pre and post operative briefing and debriefing was performed. Introductions were made, goals of the procedure were discussed, questions and concerns were addressed. The operative site markings were identified and appropriate. A time [id number] was performed, the patient's correct identity was confirmed and the correct operative sites were identified. The patients pre-operative antibiotic dosing and administration was confirmed along with other SCIP measures. The team was polled at the completion of the surgery and all team members were in agreement that the procedure was without complication, the counts are correct, the wound class was identified and suggestions for improvement were shared. patient was transferred to the [facility] to the operative table in supine fashion. All bony promises were well-padded. A well-padded thigh tourniquet was placed high in the thigh. A bump was placed under the ipsilateral hip. The leg was placed on bone foam. The left lower extremity was prepped and draped in standard sterile fashion using ChloraPrep. We then marked out the anatomy of the ankle including the medial malleolus and lateral malleolus then exsanguinated the limb and raised the tourniquet to 300 mmHg. This would remain elevated for the duration of the case which proved to be 105 minutes. We began by making a direct lateral approach to the distal fibula. we incised sharply through skin and sharply through the periosteum of the distal fibula. More proximally, we dissected bluntly down to the level of the fascia ensuring to identify and protect the superficial peroneal nerve in the anterior flap. Distally, periosteal flaps were raised both anteriorly and posteriorly until we encountered the fracture. We then continued our periosteal flaps proximally. We gapped open the fracture and cleaned out fracture hematoma sharply using knife, curettes, rongeur's, pituitaries. We then proceeded to obtain our reduction using jlixu-di-fnate reduction clamps and lobster claw reduction clamps. We checked the reduction on multiplane fluoroscopy to ensure that we had appropriate fibular length. Once we are satisfied with this, we planned for 2 lag screws as the fracture was quite long. We began by over drilling the near cortex from posterior to anterior and distal to proximally using a 3.5 mm drill. We then under drilled the far cortex. We measured and selected a 3.5 x 18 mm cortical screw. This obtained excellent purchase. Just proximal to this, we used the same leg by technique technique to place a 3.0 x 16 mm cortical screw. Excellent purchase was felt with this one as well. We then removed our clamps and were satisfied with the reduction and stability. We then chose an appropriately sized Arthrex anatomic distal fibular plate. The 8 hole distal fibular locking plate gave us the appropriate amount of proximal and distal fixation. Using fluoroscopy we placed this plate in an appropriate location and then began by securing it distally with wires followed by placing a single cortical screw proximally. We then placed a single cortical screw distally in order to approximate the plate to bone distally and were satisfied not only with the plate position, but also it is proximity to bone. We then began by drilling, measuring, and placing appropriately sized 3.0 mm variable angle locking screws in the distal holes. We replaced the cortical screw with a variable angle locking screw of appropriate size as well. Next, we turned our attention back proximally and placed 2 additional cortical screws to secure the plate proximally. We then turned our attention medially. We made a direct medial approach over the anterior colliculus of the medial malleolus. We dissected sharply down to the level of periosteum. Periosteal flaps were raised both anteriorly and posteriorly and we removed all interposed periosteum as well as fracture hematoma from the fracture. We dissected anteriorly such that we could appreciate the shoulders reduction as well. Using dental picks, the reduction of the medial malleolus was obtained under direct visualization and this was held in place by a 0.045 mm K wire. We then checked the reduction using multiplane fluoroscopy and were satisfied. Considering the size of the medial malleolus we felt as if 2 screws would be appropriate so we placed wires for the 4.0 mm cannulated screws just anterior and posterior to the anterior colliculus such that they cross the fracture at a 90 degree angle. We selected 50 mm screws for both such that they would grab the metaphyseal bone. We drilled over the wires and placed the screws over the wires and felt excellent purchase. All provisional fixation was then removed and we took final fluoroscopic images including an external rotation stress exam. The external rotation stress exam was negative and as such no syndesmotic fixation was added. The wounds were copiously irrigated with sterile saline and closed in a layered fashion. We used 3-0 Monocryl within the periosteal layers both mediall y and laterally followed by 3-0 nylon in an vertical mattress fashion. We placed quarter inch brown Steri-Strips between all sutures then covered the wounds with Betadine soaked Adaptic, 4 x 4 fluffs, sterile Webril and a well- padded AO trauma trilaminar splint. The patient tolerated this procedure well and was transferred to the PACU in stable condition. Prior to transportation to PACU, all counts were correct and a briefing was performed at the end of the case. Physician-directed fluoroscopy for greater than one hour was performed by myself to verify fracture alignment and the safe placement of all internal fixation. The final images saved to PACs showed views demonstrating satisfactory alignment of the fracture and stable internal fixation. Implant verification was performed by myself by reading and confirming the implant information on the packaging with the team before the sterile implants were opened. I was present for the entire procedure. Plan: Weight bearing status: nonweightbearing left lower extremity Wound care: keep splint clean and dry Range of motion: okay for motion of toes VTE Prophylaxis: okay to resume from orthopedic standpoint Antibiotics: perioperative Ancef Pain Control: Multimodal avoiding NSAIDs Discharge Plan: pending PT/OT Follow Up: with myself in 2 weeks implants: plate: Arthrex anatomic distal fibula plate, direct lateral, 8 hole Screws for the plate: 2 x 3.0 x 16 mm variable angle locking screw 1 x 3.0 x 14 mm variable angle locking screw 1 x 3.0 x 18 mm variable angle locking screw 2 x 3.5 x 14 mm cortical screw 1 x 3.5 x 16 mm cortical screw lag screws: 1 x 3.5 x 18 mm cortical screw 1 x 3.0 x 16 mm cortical screw medial malleolus: 2 x 4.0 x 15 mm cannulated I attest to the content of the Intraoperative Record and any orders documented therein. Any exceptions are noted below.
--- NOTE | 2024-05-22 12:06 | Anesthesiology Progress Note ---
Date of Service May 22, 2024 Anesthesia Post Procedure Vital Signs Vital Signs: Temp Pulse Pulse Resp BP BP Pulse Ox 05/22/24 12:00 36.4 C L 69 16 129/73 98 05/22/24 11:50 65 14 132/72 97 05/22/24 11:40 68 14 132/73 92 05/22/24 11:30 71 16 132/73 92 05/22/24 11:23 36 C L 76 14 133/77 96 05/22/24 07:36 36.9 C 70 18 132/77 96 05/21/24 22:16 36.5 C 57 L 18 133/67 96 05/21/24 16:14 36.8 C 63 18 113/75 94 O2 Del Method O2 Flow Rate 05/22/24 12:00 Nasal Cannula 2 05/22/24 11:50 Nasal Cannula 2 05/22/24 11:40 Room Air 05/22/24 11:30 Room Air 05/22/24 11:23 Oxymask 6 05/22/24 07:36 Room Air 05/21/24 22:16 Room Air 05/21/24 16:14 Room Air Pain Intensity Left Ankle: Pain Intensity: 4 Transfer of Care Handoff Completed per policy Notes Mental Status: alert / awake / arousable Patient Amnestic to Procedure: Yes Nausea / Vomiting: adequately controlled Pain: adequately controlled Airway Patency, RR, SpO2: stable & adequate BP & HR: stable & adequate Hydration State: stable & adequate Neuraxial Anesthesia: was administered and sensory block is resolving Anesthetic Complications: no major complications apparent and Pt Satisfied with anesthetic care Notes: mild pain in outer ankle
[2024-05-22] MEDS: MoRPHine SULFATE 4 MG/ML 1 ML CARP\\VIAL IV PRN (15:09)
[2024-05-22 15:41] LABS: Hematocrit (blood only) 22.7 % (42.0-52.0); Hemoglobin 8.2 g/dl (14.0-18.0); Mean Corpuscular Hemoglobin 31.8 pg (25.0-34.0); Mean Corpuscular Hgb Conc 36.1 g/dL (32.0-36.0); Mean Platelet Volume 10.9 fL (9.4-12.4); Nucleated RBC # (auto) 0.07 K/uL (0.00-0.12); Nucleated RBC % (auto) 0.5 %; Platelet Count 79 K/uL (130-400); RDW Coefficient of Variation 13.5 % (11.5-14.5); RDW Standard Deviation 41.1 fL (36.4-46.3); Red Blood Count 2.58 M/uL (4.70-6.10); White Blood Count 14.22 K/ul (4.8-10.8)
[2024-05-22 15:43] LABS: BUN Creatinine Ratio 13.7 (10-20); Calcium 8.2 mg/dl (8.6-10.3); Creatinine Clr Calc Pharmacy 54.8 ml/min; Potassium 4.2 mmol/L (3.5-5.1)
--- NOTE | 2024-05-22 16:06 | Hospitalist Progress Note ---
Date of Service May 22, 2024 Assessment & Plan (1) Sepsis: Plan: 58-year-old male diagnosed with small cell lung cancer February 14 2024 on chemotherapy and radiation therapy presents with pancytopenia, concern for sepsis from urinary source versus gut translocation, bimalleolar fracture of left ankle. He developed A-fib RVR which was converted with magnesium and transition of atenolol to Toprol since physiologic stressor is resolved could return to atenolol at dc. surgical repair 05/22/24, will need to discuss possible postponing of chemo due to rehab concern for sepsis from urinary source in the face of pancytopenia induced by chemotherapy Urine analysis is abnormal, final urine cultures(more than 3 organisms ) and blood cultures are negative to date alternatively could be typhlitis, with neutropenia, given nuepogen 05/15, 05/18 no longer neutropenic Initiated on cefepime therapy previous ESBL E coli, changed to Ertapenem renal dose completed 5 days therapy Patient's elevated lactic acid of 2.4 on presentation Patient with acute kidney injury- resolved (2) Small cell lung cancer in adult: Plan: Undergoing chemoradiation therapy at the cancer [facility], later [facility], patient with chemotherapy-induced pancytopenia given concern for infection one dose neupogen given 05/15, 05/[address] Ramirez regarding upcoming timing of his next chemotherapeutic infusion. Initially scheduled for May 26. Dr. Ramirez feels this can be safely postponed for 2 weeks if need be (3) AF (atrial fibrillation): Plan: Patient developed atrial fibrillation rapid ventricular response was associated with cardiac discomfort on the afternoon/evening of 05/14. Employing transition of atenolol to metoprolol with additional metoprolol iv back up additional magnesium, converted to NSR 203605/14/24, since short duration will not consider AC magdiel with pancytopenia HR has been controlled since and has remained in sinus rhythm-return to atenolol on discharge (4) Emphysema lung: Plan: Previous history of emphysema patient is maintained on Trelegy and Singulair remains on room air CPAP for DONAVON (5) Bimalleolar fracture of left ankle: Plan: er consult with Dr Boone recommends out patient treatment will sling and splint, OR repair 05/22/24 Plan for hypertension and cardiac prevention pt continues on metoprolol holding losartan for isabelle lexapro continues for depression, trazadone for sleep tamsulosin for BPH Admission and Anticipated Discharge Date Admission Date: May 14, 2024 Subjective pt was seen in pacu, some burning sensation to ankle, still with some anesthesia on board no chest pain or shortness of breath Physical Exam Physical Exam: Patient is awake alert he is long-leg splint on the left cardiac exam is regular lungs are clear Results & Data Results & Data Vital Signs (Past 12 Hours) Vital Signs Temp Pulse Pulse Resp BP BP Pulse Ox 05/22/24 15:30 97.9 F 58 L 16 110/74 99 05/22/24 14:39 98.6 F 62 16 127/76 95 05/22/24 13:29 97.7 F 76 17 124/82 96 05/22/24 13:00 97.9 F 73 16 115/74 97 05/22/24 12:59 05/22/24 12:35 97.5 F L 69 17 132/79 97 05/22/24 12:15 76 20 127/67 98 05/22/24 12:00 97.5 F L 69 16 129/73 98 05/22/24 11:50 65 14 132/72 97 05/22/24 11:40 68 14 132/73 92 05/22/24 11:30 71 16 132/73 92 05/22/24 11:23 96.8 F L 76 14 133/77 96 05/22/24 07:36 98.4 F 70 18 132/77 96 O2 Del Method O2 Flow Rate 05/22/24 15:30 Nasal Cannula 2 05/22/24 14:39 Nasal Cannula 2 05/22/24 13:29 Nasal Cannula 2 05/22/24 13:00 Nasal Cannula 2 05/22/24 12:59 Nasal Cannula 2 05/22/24 12:35 Nasal Cannula 2 05/22/24 12:15 Nasal Cannula 2 05/22/24 12:00 Nasal Cannula 2 05/22/24 11:50 Nasal Cannula 2 05/22/24 11:40 Room Air 05/22/24 11:30 Room Air 05/22/24 11:23 Oxymask 6 05/22/24 07:36 Room Air Laboratory Results review cbc review chemistry PG Care Time/CCT Total # of Minutes Spent Total Time Spent with Patient: Total time spent is greater than 50% in coordination of care (as documented) at patient's floor/unit and/or counseling patient: Coding Level of Care Code 78607 SUB INP/OBS CARE 50MIN Diagnoses Sepsis A41.9 Small cell lung cancer in adult C34.90 AF (atrial fibrillation) I48.91 Emphysema lung J43.9 Bimalleolar fracture of left ankle S82.842A
[2024-05-22 16:21] LABS: ALC (manual) 0.28 K/uL (1.2-3.4); ANC (manual) 12.37 K/uL (1.4-6.5); Basophils # (manual) 0.14 K/uL (0-0.2); Basophils % (manual) 1 %; Dohle Bodies 1+; Eosinophils # (manual) 0.14 K/uL (0-0.50); Eosinophils % (manual) 1 %; Lymphocytes # (manual) 0.28 K/uL (1.2-3.4); Lymphocytes % (manual) 2 %; Metamyelocytes # (manual) 0.57 K/uL (0-0); Metamyelocytes % (manual) 4 %; Monocytes # (manual) 0.43 K/uL (0.11-0.59); Monocytes % (manual) 3 %; Myelocytes # (manual) 0.14 K/uL (0-0); Myelocytes % (manual) 1 %; Neutrophils # (manual) 12.37 K/uL (1.40-6.50); Neutrophils % (manual) 87 %; Polychromasia 1+; Promyelocytes # (manual) 0.14 K/uL (0-0); Promyelocytes % (manual) 1 %; Stomatocytes 1+; Toxic Granulation 2+
--- NOTE | 2024-05-22 17:37 | Fluoroscopy Report ---
FL ankle LT min 3V RTN CLINICAL HISTORY: LEFT ANKLE ORIF TECHNIQUE: 8 views were obtained with the C-arm in the OR with the above procedure. Total fluoroscopy time was 104.4 seconds. Radiation dose was 2.33 mGy. Comparison: Comparison is made to ankle radiograph 05/15/2024 FINDINGS/IMPRESSION: Intraoperative images were obtained of open reduction internal fixation of the l eft ankle fracture. Please correlate with intraoperative fluoroscopy and operative report. ACT 112: Negative or not required by law. Electronically signed by: Joseph Marino M.D. 05/22/2024 5:36 PM
--- NOTE | 2024-05-23 08:11 | Hospitalist Progress Note ---
Date of Service May 23, 2024 Assessment & Plan (1) Sepsis: (2) Small cell lung cancer in adult: (3) AF (atrial fibrillation): (4) Bimalleolar fracture of left ankle: Plan 58-year-old male diagnosed with small cell lung cancer February 14 2024 on chemotherapy and radiation therapy presents with pancytopenia, concern for sepsis from urinary source versus gut translocation, bimalleolar fracture of left ankle. He developed A-fib RVR which was converted with magnesium and wheatley sition of atenolol to Toprol since physiologic stressor is resolved could return to atenolol at dc. surgical repair 05/22/24, will need to discuss possible postponing of chemo due to rehab #sepsis from urinary source in the face of pancytopenia induced by chemotherapy Urine analysis is abnormal, final urine cultures(more than 3 organisms ) and blood cultures are negative to date alternatively could be typhlitis, with neutropenia, given nuepogen 05/15, 05/18 no longer neutropenic Initiated on cefepime therapy previous ESBL E coli, changed to Ertapenem renal dose completed 5 days therapy Patient's elevated lactic acid of 2.4 on presentation #Small Cell lung cancer Undergoing chemoradiation therapy at the cancer [facility], patient with chemotherapy-induced pancytopenia given concern for infection one dose neupogen given 05/15, 05/[address] Ramirez regarding upcoming timing of his next chemotherapeutic infusion. Initially scheduled for May 26. Dr. Ramirez feels this can be safely postponed for 2 weeks if need be # atrial fibrillation rapid ventricular response was associated with cardiac discomfort on the afternoon/evening of 05/14. Employing transition of atenolol to metoprolol with additional metoprolol iv back up, additional magnesium, converted to NSR 203605/14/24, since short duration will not consider AC magdiel with pancytopenia # Bimalleolar fracture left ankle poa, Dr Boone recommends out patient treatment will sling and splint, OR repair 05/22/24 #COPD remains on Treleogy #Patient with acute kidney injury- resolved ckd3 holding losartan #hypertension and cardiac prevention pt continues on metoprolol #lexapro continues for depression, trazadone for sleep #tamsulosin for BPH Disposition to Rehab, delay chemo for 2 weeks or so if able to around of 2024 Admission and Anticipated Discharge Date Admission Date: May 14, 2024 Subjective pt doing well has no complaints, looking to go to rehab this week leg still with some pain Physical Exam Physical Exam: Patient is awake alert he is long-leg splint on the left cardiac exam is regular lungs are clear Results & Data Results & Data Vital Signs (Past 12 Hours) Vital Signs Temp Pulse Pulse Pulse Resp BP BP 05/23/24 08:00 97.9 F 60 20 112/68 05/23/24 02:40 97.9 F 64 18 115/76 05/22/24 22:46 05/22/24 22:45 98.1 F 64 18 95/61 L 05/22/24 20:56 70 111/68 Pulse Ox O2 Del Method O2 Flow Rate 05/23/24 08:00 96 Room Air 05/23/24 02:40 93 Nasal Cannula 2 05/22/24 22:46 95 Nasal Cannula 2 05/22/24 22:45 83 L Room Air 05/22/24 20:56 PG Care Time/CCT Total # of Minutes Spent Total Time Spent with Patient: Total time spent is greater than 50% in coordination of care (as documented) at patient's floor/unit and/or counseling patient: Coding Level of Care Code 86288 SUB INP/OBS CARE 2/35MIN Diagnoses Sepsis A41.9 Small cell lung cancer in adult C34.90 AF (atrial fibrillation) I48.91 Bimalleolar fracture of left ankle S82.842A
--- NOTE | 2024-05-23 09:19 | Orthopedic Progress Note ---
Date of Service May 23, 2024 Assessment & Plan (1) Bimalleolar fracture of left ankle: (2) Acute UTI (urinary tract infection): (3) Neutropenia: (4) Elevated lactic acid level: (5) Hypomagnesemia: (6) AF (atrial fibrillation): (7) Sepsis: (8) Small cell lung cancer in adult: (9) Hypotension: Plan patient doing well postoperative day #1 status post ORIF left ankle. No acute complaints. Nonweightbearing left lower extremity Okay for DVT prophylaxis Follow-up with myself in 2 weeks for wound check Keep splint clean and dry Out of bed to chair 3 times daily with all meals PT/OT to determine appropriate discharge plan Admission and Anticipated Discharge Date Admission Date: May 14, 2024 Subjective Postoperative day #1 status post ORIF left ankle. Patient doing well. No acute complaints. Review of Systems Review of Systems: Negative unless otherwise stated above Physical Exam Physical Exam: Patient's left lower extremity is splinted. His exposed toes demonstrate mild soft tissue swelling. He does demonstrate active EHL and FHL function. Results & Data Vital Signs (Past 12 Hours) Vital Signs Temp Pulse Pulse Resp BP BP Pulse Ox 05/23/24 08:00 36.6 C 60 20 112/68 96 05/23/24 02:40 36.6 C 64 18 115/76 93 05/22/24 22:46 95 05/22/24 22:45 36.7 C 64 18 95/61 L 83 L O2 Del Method O2 Flow Rate 05/23/24 08:00 Room Air 05/23/24 02:40 Nasal Cannula 2 05/22/24 22:46 Nasal Cannula 2 05/22/24 22:45 Room Air
[2024-05-23] MEDS: METOPROLOL SUCC 50MG EXT REL TAB PO SCH (10:14)
[2024-05-23] MEDS ORDERED: ACETAMINOPHEN 500 MG TAB PO PRN (17:01)
[2024-05-23] MEDS: oxyCODONE HCL IR 5 MG TAB (IMMEDIATE RELEASE) PO PRN (22:52)
--- NOTE | 2024-05-24 07:08 | Hospitalist Progress Note ---
Date of Service May 24, 2024 Assessment & Plan (1) Sepsis: (2) Small cell lung cancer in adult: (3) AF (atrial fibrillation): (4) Bimalleolar fracture of left ankle: Plan 58-year-old male diagnosed with small cell lung cancer February 14 2024 on chemotherapy and radiation therapy presents with pancytopenia, concern for sepsis from urinary source versus gut translocation, bimalleolar fracture of left ankle. He developed A-fib RVR which was converted with magnesium and wheatley sition of atenolol to Toprol since physiologic stressor is resolved could return to atenolol at dc. surgical repair 05/22/24, will need to discuss possible postponing of chemo due to rehab #sepsis from urinary source in the face of pancytopenia induced by chemotherapy Urine analysis is abnormal, final urine cultures(more than 3 organisms ) and blood cultures are negative to date alternatively could be typhlitis, with neutropenia, given nuepogen 05/15, 05/18 no longer neutropenic Initiated on cefepime therapy previous ESBL E coli, changed to Ertapenem renal dose completed 5 days therapy Patient's elevated lactic acid of 2.4 on presentation #Small Cell lung cancer [facility], patient with chemotherapy-induced pancytopenia given concern for infection one dose neupogen given 05/15, 05/[address] Ramirez regarding upcoming timing of his next chemotherapeutic infusion. Initially scheduled for May 26. Dr. Ramirez feels this can be safely postponed for 2 weeks if need be # atrial fibrillation rapid ventricular response was associated with cardiac discomfort on the afternoon/evening of 05/14. Employing transition of atenolol to metoprolol with additional metoprolol iv back up, additional magnesium, converted to NSR 203605/14/24, since short duration will not consider AC magdiel with pancytopenia # Bimalleolar fracture left ankle poa, Dr Boone recommends out patient treatment will sling and splint, OR repair 05/22/24 #COPD remains on Treleogy #Patient with acute kidney injury- resolved ckd3 holding losartan #hypertension and cardiac prevention pt continues on metoprolol #lexapro continues for depression, trazadone for sleep #tamsulosin for BPH Disposition to Rehab, delay chemo for 2 weeks or so if able to around of 2024 Admission and Anticipated Discharge Date Admission Date: May 14, 2024 Subjective pt doing well has no complaints, looking to go to rehab this week leg still with some pain but overall controlled Physical Exam Physical Exam: Patient is awake alert he is long-leg splint on the left cardiac exam is regular lungs are clear Results & Data Results & Data Vital Signs (Past 12 Hours) Vital Signs Temp Pulse Resp BP Pulse Ox O2 Del Method 05/23/24 20:01 98.1 F 62 16 104/65 93 Room Air PG Care Time/CCT Total # of Minutes Spent Total Time Spent with Patient: Total time spent is greater than 50% in coordination of care (as documented) at patient's floor/unit and/or counseling patient: Coding Level of Care Code 37529 SUB INP/OBS CARE 2/35MIN Diagnoses Sepsis A41.9 Small cell lung cancer in adult C34.90 AF (atrial fibrillation) I48.91 Bimalleolar fracture of left ankle S82.842A
[2024-05-25 09:36] LABS: Hematocrit (blood only) 22.6 % (42.0-52.0); Hemoglobin 7.8 g/dl (14.0-18.0); Mean Corpuscular Hgb Conc 34.5 g/dL (32.0-36.0); Mean Corpuscular Volume 89.7 fL (80.0-100.0); Mean Platelet Volume 10.4 fL (9.4-12.4); Nucleated RBC # (auto) 0.04 K/uL (0.00-0.12); Nucleated RBC % (auto) 0.8 %; Platelet Count 90 K/uL (130-400); RDW Coefficient of Variation 14.5 % (11.5-14.5); RDW Standard Deviation 41.8 fL (36.4-46.3); Red Blood Count 2.52 M/uL (4.70-6.10); White Blood Count 4.94 K/ul (4.8-10.8)
[2024-05-25 09:57] LABS: BUN Creatinine Ratio 13.3 (10-20); Calcium 8.6 mg/dl (8.6-10.3); Creatinine Clr Calc Pharmacy 65.1 ml/min; Potassium 4.2 mmol/L (3.5-5.1)
--- NOTE | 2024-05-25 13:05 | Hospitalist Progress Note ---
Date of Service May 25, 2024 Assessment & Plan (1) Sepsis: (2) Small cell lung cancer in adult: (3) AF (atrial fibrillation): (4) Bimalleolar fracture of left ankle: Plan 58-year-old male diagnosed with small cell lung cancer February 14 2024 on chemotherapy and radiation therapy presents with pancytopenia, concern for sepsis from urinary source versus gut translocation, bimalleolar fracture of left ankle. He developed A-fib RVR which was converted with magnesium and wheatley sition of atenolol to Toprol since physiologic stressor is resolved could return to atenolol at dc. surgical repair 05/22/24, will need to discuss possible postponing of chemo due to rehab #sepsis from urinary source in the face of pancytopenia induced by chemotherapy Urine analysis is abnormal, final urine cultures(more than 3 organisms ) and blood cultures are negative to date alternatively could be typhlitis, with neutropenia, given nuepogen 05/15, 05/18 no longer neutropenic Initiated on cefepime therapy previous ESBL E coli, changed to Ertapenem renal dose completed 5 days therapy Patient's elevated lactic acid of 2.4 on presentation #Small Cell lung cancer Undergoing chemoradiation therapy at the cancer [facility], patient with chemotherapy-induced pancytopenia given concern for infection one dose neupogen given 05/15, 05/[address] Ramirez regarding upcoming timing of his next chemotherapeutic infusion. Initially scheduled for May 26. Dr. Ramirez feels this can be safely postponed for 2 weeks if need be # atrial fibrillation rapid ventricular response was associated with cardiac discomfort on the afternoon/evening of 05/14. Employing transition of atenolol to metoprolol with additional metoprolol iv back up, additional magnesium, converted to NSR 203605/14/24, since short duration will not consider AC magdiel with pancytopenia; hemglobin slightly decreased, levels though stable will repeat in AM # Bimalleolar fracture left ankle poa, Dr Boone recommends out patient treatment will sling and splint, OR repair 05/22/24 #COPD remains on Treleogy #Patient with acute kidney injury- resolved ckd3 holding losartan #hypertension and cardiac prevention pt continues on metoprolol #lexapro continues for depression, trazadone for sleep #tamsulosin for BPH Disposition to Rehab, delay chemo for 2 weeks or so if able to around 06/09 week of 2024 Admission and Anticipated Discharge Date Admission Date: May 14, 2024 Subjective Patient reports no new symptoms. Physical Exam Constitutional: WD/WN, vitals as above Respiratory: normal respiratory effort, lungs clear to auscultation Cardiovascular: RRR, no murmur, no edema Skin: no rashes, warm and dry Neurologic: patellar DTR's 2+ bilat, sensation intact Psychiatric: A+Ox3, euthymic affect Results & Data Results & Data Vital Signs (Past 12 Hours) Vital Signs Temp Pulse Resp BP Pulse Ox O2 Del Method 05/25/24 08:43 36.8 C 62 18 125/72 93 Room Air 05/25/24 07:22 Room Air PG Care Time/CCT Total # of Minutes Spent Total Time Spent with Patient: Total time spent is greater than 50% in coordination of care (as documented) at patient's floor/unit and/or counseling patient: Coding Level of Care Code 59861 SUB INP/OBS CARE 2/35MIN Diagnoses Sepsis A41.9 Small cell lung cancer in adult C34.90 AF (atrial fibrillation) I48.91 Bimalleolar fracture of left ankle S82.842A
[2024-05-26 08:28] LABS: Hematocrit (blood only) 23.3 % (42.0-52.0); Hemoglobin 8.1 g/dl (14.0-18.0); Mean Corpuscular Hemoglobin 31.5 pg (25.0-34.0); Mean Corpuscular Hgb Conc 34.8 g/dL (32.0-36.0); Mean Corpuscular Volume 90.7 fL (80.0-100.0); Mean Platelet Volume 10.1 fL (9.4-12.4); Nucleated RBC # (auto) 0.02 K/uL (0.00-0.12); Nucleated RBC % (auto) 0.5 %; Platelet Count 100 K/uL (130-400); Red Blood Count 2.57 M/uL (4.70-6.10); White Blood Count 3.93 K/ul (4.8-10.8)
[2024-05-26 08:35] LABS: BUN Creatinine Ratio 12.2 (10-20); Calcium 8.8 mg/dl (8.6-10.3); Creatinine Clr Calc Pharmacy 59.8 ml/min
[2024-05-26 13:17] VITALS: RESP 16
--- NOTE | 2024-05-26 21:56 | Hospitalist Progress Note ---
Date of Service May 26, 2024 Assessment & Plan (1) Sepsis: (2) Small cell lung cancer in adult: (3) AF (atrial fibrillation): (4) Bimalleolar fracture of left ankle: Plan 58-year-old male diagnosed with small cell lung cancer February 14 2024 on chemotherapy and radiation therapy presents with pancytopenia, concern for sepsis from urinary source versus gut translocation, bimalleolar fracture of left ankle. He developed A-fib RVR which was converted with magnesium and wheatley sition of atenolol to Toprol since physiologic stressor is resolved could return to atenolol at dc. surgical repair 05/22/24, will need to discuss possible postponing of chemo due to rehab #sepsis from urinary source in the face of pancytopenia induced by chemotherapy Urine analysis is abnormal, final urine cultures(more than 3 organisms ) and blood cultures are negative to date alternatively could be typhlitis, with neutropenia, given nuepogen 05/15, 05/18 no longer neutropenic Initiated on cefepime therapy previous ESBL E coli, changed to Ertapenem renal dose completed 5 days therapy Patient's elevated lactic acid of 2.4 on presentation #Small Cell lung cancer Undergoing chemoradiation therapy at the cancer [facility], patient with chemotherapy-induced pancytopenia given concern for infection one dose neupogen given 05/15, 05/[address] Ramirez regarding upcoming timing of his next chemotherapeutic infusion. Initially scheduled for May 26. Dr. Ramirez feels this can be safely postponed for 2 weeks if need be # atrial fibrillation rapid ventricular response was associated with cardiac discomfort on the afternoon/evening of 05/14. Employing transition of atenolol to metoprolol with additional metoprolol iv back up, additional magnesium, converted to NSR 203605/14/24, since short duration will not consider AC magdiel with pancytopenia; hemglobin stable, will monitor. # Bimalleolar fracture left ankle poa, Dr Boone recommends out patient treatment will sling and splint, OR repair 05/22/24 #COPD remains on Treleogy #Patient with acute kidney injury- resolved ckd3 holding losartan #hypertension and cardiac prevention pt continues on metoprolol #lexapro continues for depression, trazadone for sleep #tamsulosin for BPH Disposition to Rehab, delay chemo for 2 weeks or so if able to around of 2024 Admission and Anticipated Discharge Date Admission Date: May 14, 2024 Subjective Patient reports no new symptoms. Physical Exam Constitutional: WD/WN, vitals as above Respiratory: normal respiratory effort, lungs clear to auscultation Cardiovascular: RRR, no murmur, no edema Skin: no rashes, warm and dry Neurologic: patellar DTR's 2+ bilat, sensation intact Psychiatric: A+Ox3, euthymic affect Results & Data Results & Data Vital Signs (Past 12 Hours) Vital Signs Temp Pulse Pulse Resp BP Pulse Ox O2 Del Method 05/26/24 20:46 36.5 C 66 16 106/58 L 95 Room Air 05/26/24 20:29 Room Air 05/26/24 14:13 36.3 C L 74 16 108/57 L 93 Room Air PG Care Time/CCT Total # of Minutes Spent Total Time Spent with Patient: Total time spent is greater than 50% in coordination of care (as documented) at patient's floor/unit and/or counseling patient: Coding Level of Care Code 83309 SUB INP/OBS CARE 2/35MIN Diagnoses Sepsis A41.9 Small cell lung cancer in adult C34.90 AF (atrial fibrillation) I48.91 Bimalleolar fracture of left ankle S82.842A
[2024-05-27] MEDS: DOCUSATE SODIUM/SENNA 50/8.6MG TAB PO SCH (11:16)
[2024-05-27] MEDS: POLYETHYLENE (MIRALAX) 17 GM PACK PO SCH (11:17)
[2024-05-27 14:01] VITALS: BP 113/68; PULSE 80; TEMP 98.1; O2SAT 95
--- NOTE | 2024-05-27 17:22 | Discharge Summary ---
Discharge Summary Date of Service May 27, 2024 Principal Dx & Hospital Course #1 = Principal Diagnosis (1) Sepsis: (2) Small cell lung cancer in adult: (3) AF (atrial fibrillation): (4) Bimalleolar fracture of left ankle: Plan 58-year-old male diagnosed with small cell lung cancer February 14 2024 on chemotherapy and radiation therapy presents with pancytopenia, concern for sepsis from urinary source versus gut translocation, bimalleolar fracture of left ankle. He developed A-fib RVR which was converted with magnesium and transition of atenolol to Toprol since physiologic stressor is resolved could return to atenolol at dc. surgical repair 05/22/24, will need to discuss possible postponing of chemo due to rehab #sepsis from urinary source in the face of pancytopenia induced by chemotherapy Urine analysis is abnormal, final urine cultures(more than 3 organisms ) and blood cultures are negative to date alternatively could be typhlitis, with neutropenia, given nuepogen 05/18 no longer neutropenic Initiated on cefepime therapy previous ESBL E coli, changed to Ertapenem renal dose completed 5 days therapy Patient's elevated lactic acid of 2.4 on presentation #Small Cell lung cancer Undergoing chemoradiation therapy at the [facility], patient with chemotherapy-induced pancytopenia given concern for infection one dose neupogen given 05/15, 05/[address] Ramirez regarding upcoming timing of his next chemotherapeutic infusion. Initially scheduled for May 26. Dr. Ramirez feels this can be safely postponed for 2 weeks if need be # atrial fibrillation rapid ventricular response was associated with cardiac discomfort on the afternoon/evening of 05/14. Employing transition of atenolol to metoprolol with additional metoprolol iv back up, additional magnesium, converted to NSR 203605/14/24, since short duration will not consider AC magdiel with pancytopenia; hemglobin stable, will monitor. # Bimalleolar fracture left ankle poa, Dr Boone recommends out patient treatment will sling and splint, OR repair 05/22/24 #COPD remains on Treleogy #Patient with acute kidney injury- resolved ckd3 holding losartan #hypertension and cardiac prevention pt continues on metoprolol #lexapro continues for depression, trazadone for sleep #tamsulosin for BPH Disposition to Rehab, delay chemo for 2 weeks or so if able to around of 2024 Admission HPI Per Admitting Provider 50-year-old male currently undergoing treatment for limited stage small cell lung cancer diagnosed February 14, 2024 with a background of COPD. Small cell lung cancer is being treated by both chemotherapy and radiation therapy who presents to the emergency department with hypertensive urgency undergoing chemical stress testing. Patient is found to likely be septic from urinary source with elevated lactic acid tachycardia and evidence of neutropenia with an ANC of 920 likely due to chemotherapy. Patient was given cefepime in the emergency department 2 L of fluid and did have some improvement. Patient feels 3 days prior to admission when he get dizzy at home and likely sustained a bimalleolar fracture which is present on admission to his left ankle. ER consultation with Ortho foot and ankle feels this is able to be stabilized after being reduced and will be seen as an outpatient once his medical problems are improved Patient is found to be pancytopenic in the emergency department although his anemia is slight and his platelet counts are 75. He also has acute kidney injury with BUN and creatinine of 84 and 3.54 hopeful his hydration for sepsis will improve this. Subsequently though he does need renal dosing of his antibiotics. Discharge Plan Discharge Items Patient Disposition: Transfer Inpatient Rehab Fac Reason For Visit: SEPSIS URINARY SOURCE, NEUTROPENIA FROM CHEMOTHERA Discharge Diagnosis: fever associated with chemotherapy brief afib now back to normal rhythm left leg bimalleolar fracture Activity: Per Instructions section Activity Comment: left leg non weight bearing Non-emergency contact: Primary Care Provider and Surgeon Call non-emergency contact if: your symptoms worsen Follow-up/Referrals: Jerod Boone DO [Surgeon] - Diet: Regular Addtl Attending Provider Instructions: Nonweightbearing left lower extremity Okay for DVT prophylaxis Follow-up with Dr. Boone in 2 weeks for wound check Keep splint clean and dry Out of bed to chair 3 times daily with all meals Will hold metoprolol, losartan and hydrochlorothiazide/ triamterene. Pending Studies at Discharge: No Stand-Alone Forms: My [employer], Smoking Cessation Skilled Items Patient informed of condition?: Yes DNR: No Discharge Level of Care: Acute rehab Communicable Disease: No Discharge Prognosis: Stable Lines: None Urinary Catheter: No Medications and DC Order Prescriptions: New acetaminophen 325 mg Tablet 650 mg PO Q4H PRN (Reason: pain) Qty: 1 0RF oxycodone 5 mg Tablet 10 mg PO Q6H PRN (Reason: pain) Qty: 20 0RF Continued prochlorperazine maleate [Compazine] 10 mg tablet 10 mg PO Q6H PRN (Reason: Nausea And Vomiting) albuterol sulfate 90 mcg/actuation HFA aerosol inhaler 1 inh inhalation QID PRN (Reason: shortness of breath or wheezing) Qty: 18 3RF (DME) CPAP Supplies Misc See Rx Instructions .ROUTE .MEDSUPPLY Qty: 1 0RF Rx Instructions: CPAP supplies (DME) Auto Titrating CPAP Misc See Rx Instructions .ROUTE .MEDSUPPLY Qty: 1 0RF Rx Instructions: auto cpap 5-15 cmh20 Trelegy Ellipta 200-62.5-25 mcg blister with device 1 inh inhalation DAILY Qty: 60 2RF pantoprazole 20 mg tablet,delayed release (DR/EC) 20 mg PO QAM Qty: 90 3RF montelukast 10 mg tablet 10 mg PO QAM Qty: 30 2RF sucralfate [Carafate] 1 gram tablet 1 g PO TID Qty: 90 5RF trazodone 100 mg tablet 100 mg PO DAILY Qty: 30 5RF atorvastatin 10 mg tablet 10 mg PO QAM tamsulosin 0.4 mg capsule 0.4 mg PO QAM escitalopram oxalate 20 mg tablet 20 mg PO QAM Held triamterene-hydrochlorothiazid 37.5-25 mg capsule 1 cap PO DAILY Hold Instructions: Resume on 06/10/24. hold until Blood pressure increases or PCP recommends to resume losartan 100 mg tablet 100 mg PO QAM Hold Instructions: Resume on 06/10/24. Blood pressure has been lower. may resume if blood pressure increases Discontinued atenolol 50 mg tablet 50 mg PO QAM Qty: 90 1RF Discharge Orders: Discharge Order (Routine); Ordered 05/27/24 Ordered By: Kenn Bui Admission Data Admit Date/Time: 05/14/24 12:44 Attending Provider: Kenn Bui Admit Provider: Sim Han Primary Care Provider: Erin Neal V. Other Providers: Sim Han; Jerod Boone Other Interventions: Discharge Summary Assessment (RN) Last Done: 05/27/24 11:44 Hospital Stay Data Consultations 05/14/24 12:27 Consult Orthopedic Surgery Routine ED Decision to Admit Stat 05/16/24 14:41 Consult Patient Services Routine 05/21/24 12:44 Consult Patient Rep [Consult Patient Services] Stat Procedures Performed Operation Date: 05/22/24 08:45 Actual Procedures p Left Open Reduction Internal Fixation Bimalleolar Ankle Fracture, Physician directed floroscopy >1hr, Application of Below Knee Splint(Left) - Jerod Boone, Diagnostic Imagining Performed 05/22/24 07:00 US - OR guided needle placemen Routine 05/22/24 08:45 FL ankle LT min 3V RTN Routine Pending Results Patient Have Any Pending Studies at Discharge: No Discharge Instructions Given to Patient (Per Discharging Provider) Nonweightbearing left lower extremity Okay for DVT prophylaxis Follow-up with Dr. Boone in 2 weeks for wound check Keep splint clean and dry Out of bed to chair 3 times daily with all meals Will hold metoprolol, losartan and hydrochlorothiazide/ triamterene. Coding Diagnoses Sepsis A41.9 Small cell lung cancer in adult C34.90 AF (atrial fibrillation) I48.91 Bimalleolar fracture of left ankle S82.842A
== END 2024-05-27 16:34 | DRG 853 ==
LOC: ED 10:14 → SUATTDRO 12:44 → 2S 12:44 → 3N 05-21 16:09

== ENCOUNTER 2024-09-28 09:36 | Inpatient (IN) ==
--- NOTE | 2024-09-28 10:25 | Emergency Department Note ---
History of Present Illness General Chief complaint: Shortness of Breath/Dyspnea Stated complaint: TROUBLE BREATHING, RT LUNG CX, FATIGUE Time Seen by Provider: 09/28/24 09:48 History of Present Illness Maximum Pain Intensity: 2 Patient is a 58-year-old male with past medical history significant for hypertension, dyslipidemia, GERD, asthma, COPD, history of A-fib, CKD, history of small cell lung CA currently receiving immunotherapy, among other chronic medical problems who presents to the emergency department from his primary care provider's office for evaluation of shortness of breath and fatigue. Patient reports he completed chemotherapy in June of this year. Since finishing chemo, he has had generalized fatigue malaise and shortness of breath. His symptoms have been getting worse over the last 1 to 2 months. He is receiving immunotherapy every 4 weeks. He saw his primary care provider at the end of August, was treated with Augmentin and azithromycin, which he finished last week. At home over the weekend because of his shortness of breath, he was checking his oxygen saturations with a pulse ox and noted them to be between 85 and 90%. He is very short of breath and winded with even light activity/exertion. He did try using albuterol nebulizers once yesterday and once the day prior, with minimal relief. He was seen at [facility] this morning and referred to the ED for his symptoms. He reports generalized chest pain with deep breathing. He has a chronic cough that is productive of yellow sputum. He has not had any fevers. He has not previously required oxygen. Denies any abdominal pain, nausea or vomiting. He is urinating and stooling well. No lower extremity pain, swelling or edema. Home Medications Medication Instructions Recorded Confirmed Type albuterol sulfate 90 mcg/actuation 1 inh inhalation QID PRN shortness 09/30/23 09/28/24 Rx aerosol inhaler of breath or wheezing #18 grams tamsulosin 0.4 mg capsule 0.4 mg PO QAM 02/12/24 09/28/24 History fluticasone fur. 200 mcg-umeclid 1 inh inhalation DAILY #60 ea 03/12/24 09/28/24 Rx 62.5 mcg-vilant 25 mcg inhalat.powder (Trelegy Ellipta) pantoprazole 20 mg tablet,delayed 20 mg PO QAM #90 tabs 03/19/24 09/28/24 Rx release acetaminophen 325 mg tablet 650 mg (2 x 325 mg) PO Q4H PRN 05/19/24 09/28/24 Rx pain #1 tab losartan 100 mg tablet 100 mg PO QAM #90 tabs 07/01/24 09/28/24 Rx montelukast 10 mg tablet 10 mg PO QAM #30 tabs 07/14/24 09/28/24 Rx escitalopram oxalate 20 mg tablet 20 mg PO QAM #90 tabs 07/20/24 09/28/24 Rx atenolol 25 mg tablet 25 mg PO DAILY #30 tabs 08/03/24 09/28/24 Rx atorvastatin 10 mg tablet 10 mg PO QPM #90 tabs 08/30/24 09/28/24 Rx trazodone 100 mg tablet 100 mg PO HS #90 tabs 09/15/24 09/28/24 Rx Allergies Allergy/AdvReac Type Severity Reaction Status Date / Time No Known Drug Allergies Allergy Verified 09/28/24 08:48 Past Med/Surg History Problem List (Updated 09/28/24 @ 18:09 by Vamshi Cowart) Small cell lung cancer (Acute) Acute respiratory failure with hypoxia (Acute) Acute exacerbation of COPD with asthma Immunocompromised patient (Acute) Pneumonia (Acute) Neck pain Numbness and tingling in right hand URI (upper respiratory infection) CKD (chronic kidney disease) Acute asthmatic bronchitis PAF (paroxysmal atrial fibrillation) Health care maintenance Gait disturbance Anemia Sleep disturbances Small cell lung cancer (Chronic 02/14/24) Emphysema lung Asthma BPH loc w urin obs/LUTS Atherosclerotic cardiovascular disease Hypersomnolence Allergic rhinitis Bradycardia Tubular adenoma of colon Discoloration of skin Idiopathic or primary livedo reticularis Adjustment disorder with anxiety (Acute) Asthmatic bronchitis (Acute) Cervical radiculopathy (Acute) Excessive sweating (Acute) Gastritis, bile acid reflux (Acute) Hyperlipidemia (Acute) Hypertension (Acute) Shortness of breath on exertion (Chronic) Ulnar nerve palsy (Acute) Medical History Bimalleolar fracture of left ankle Abnormal PSA Elevated serum creatinine Chest pain with low to intermediate probability of pulmonary embolism Chest pain Adjustment disorder with anxiety Idiopathic or primary livedo reticularis Tubular adenoma of colon History of bradycardia BPH (benign prostatic hyperplasia) Asthma Bimalleolar fracture of left ankle 06/04/2024 currently inpatient at [facility] Sleep apnea no device Neutropenia IBS (irritable bowel syndrome) H. pylori infection Anxiety DONAVON (obstructive sleep apnea) Severe sleep apnea per 03/05/24 sleep study CPAP order faxed to [facility] per 03/06/24 workload communication note Emphysema lung Small cell lung cancer Recent diagnosis 01/2024, chemo current Morbid obesity Premature ventricular contraction Hx GERD without esophagitis Chronic cough History of bradycardia Hypersomnolence Allergic rhinitis Hx of gastritis Hypertension Hyperlipidemia Adjustment disorder with mixed anxiety and depressed mood Lung nodule Atherosclerotic cardiovascular disease Surgical History Port-A-Cath in place (03/12/24) Insertion of Access Port Left Internal Jugular with Fluoroscopy(Not Applicable) - Adrian Wallace, DO, FACS Hx of tonsillectomy History of surgery Left shoulder - torn rotator cuff History of bronchoscopy 02/14/2024, [facility] Hx of colonoscopy with polypectomy (09/2023) Hx of cardiac catheterization (2015) No stents S/P sinus surgery S/P cholecystectomy Family History Grandmother (Maternal) Bone cancer Mother Breast cancer Hiatal hernia Endometrial cancer A-fib Father Hypertension Dementia Stroke CHF (congestive heart failure) History of lung surgery Uncle Diabetes Hypertension Stroke Grandfather Diabetes Heart disease Stroke Sister Family history of reaction to anesthesia nausea/vomiting Brother Lung cancer Sleep apnea Brother Hepatitis C Brother No problems noted. Sister Cerebral aneurysm Breast cancer Hypertension Sister No problems noted. Daughter No problems noted. 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: No Beliefs That Will Affect Care: None marital status: Single Current Living Situation: Alone current occupational status: disabled 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 How many Children do You have: 1 Feels Safe at Home: Yes Dental Care, Regularly: No Physical Activity Frequency: Does not Exercise Seatbelt Use: always Sunscreen Use: No Assistive Devices: Glasses Review of Systems A total of 10 systems reviewed and were otherwise negative Physical Exam Vital Signs Vital Signs - 24 hr 09/28/24 09:38 09/28/24 12:12 09/28/24 12:30 Temperature 36.4 C L Temperature Source Temporal Artery Scan Pulse Rate 72 66 63 Pulse Rate from SpO2 Sensor 65 62 Respiratory Rate 20 22 18 Respiratory Effort / Characteristics Non-Labored Spontaneous Respiratory Depth Normal Blood Pressure 109/70 Blood Pressure Mean 83 Pulse Oximetry 93 90 97 Oxygen Delivery Method Room Air Aerosol Mask Nasal Cannula Nasal Cannula Oxygen Flow Rate 4 4 Sepsis Recent Fever Within 48 Hours No Sepsis New/Unexplained Change in Mental Status N/A Sepsis Action Taken by Nursing No Action Required 09/28/24 12:45 Temperature Temperature Source Pulse Rate Pulse Rate from SpO2 Sensor Respiratory Rate Respiratory Effort / Characteristics Respiratory Depth Blood Pressure 141/96 H Blood Pressure Mean 111 Pulse Oximetry Oxygen Delivery Method Oxygen Flow Rate Sepsis Recent Fever Within 48 Hours Sepsis New/Unexplained Change in Mental Status Sepsis Action Taken by Nursing CONSTITUTIONAL: Patient is an overweight 58-year-old male who is awake and alert and sitting semiupright on the gurney in no acute distress. He is on 4 L of oxygen by nasal cannula. Oxygen saturation is 97%. EYES: Pupils equal, round, reactive to light and accommodation. EOMs intact without nystagmus. Sclera are anicteric. ENT: Tympanic membranes intact, with normal landmarks. External canals are clear. Oral and nasopharynx are clear. Mucous membranes are moist, no lesions, tongue and gums appear normal. CARDIOVASCULAR: Regular rate and rhythm. Peripheral pulses easy to palpable. RESPIRATORY: Breath sounds mildly diminished on the right throughout. No wheezing or other adventitious sounds noted. Full and equal chest expansion without accessory muscle use or retractions. GI: Bowel sounds are present. Abdomen is soft, nontender, nondistended. No organomegaly. No pulsatile masses. No guarding or rebound. MUSCULOSKELETAL: Full range of motion of extremities x 4 with good strength. No cyanosis, edema, joint tenderness or swelling. No deformity. INTEGUMENTARY: No lesions or rash, normal skin turgor. Course Course The patient was seen and assessed as above. External medical records are reviewed. He presents to the emergency department from his primary care provider's office for evaluation of shortness of breath, fatigue and hypoxia. He was recently treated with antibiotics for a pneumonia. IV lock was initiated and laboratory studies were collected. EKG and chest x-ray were obtained. Of note, patient oxygen saturation was 93% in triage, but once placed in the exam room, he was noted by nurses to drop to 87% on room air. He was placed on 2 L, then titrated up to 4 L, oxygen saturations now maintaining between 95 to 97%. Diagnostics, as interpreted by me: Laboratory studies: Normal white count at 7200, no left shift. Mild, stable anemia, H&H 10.4 and 30.3. Coags are normal. Renal functions showing improvement from prior ARIADNA, creatinine 1.8. No transaminitis. Troponin is normal. BNP is not indicative of CHF. Lactic acid is within normal limits and not indicative of severe sepsis. ECG: Normal sinus rhythm 69 bpm. No acute ischemic changes. No significant change on review of prior EKGs. Cardiac monitoring: An order was placed for continuous cardiac monitoring. The monitor shows a NSR at a rate of 72 per my interpretation. Imaging studies: Chest x-ray per my interpretation persistent right lower lobe pneumonia. Chest CT: No PE, right lower lung consolidation likely component of radiation pneumonitis with superimposed pneumonia. Laboratory studies and chest x-ray results reviewed with attending physician, Dr. Valdivia. Lactic acid and blood cultures were obtained and he was ordered cefepime. He was hydrated with a liter bolus of normal saline solution. I did go assess the patient and update him with regard to findings. He is pending CT at this time. I did discuss need for further inpatient care. Patient is concerned as he is the primary caregiver for his father, who is on hospice/palliative care, and father will need placement. He is not willing to accept admission until he can be sure of placement for his father. I did ask ED correctional case manager to speak with the patient to see if there was anything we could do to help facilitate his needs. ED correctional case manager were able to speak with the patient, ultimately, he was able to make arrangements for his father, and is comfortable with inpatient care. Chest CT findings were reviewed with the patient. He is otherwise well- appearing and stable in the emergency department. Oxygen saturations appropriate on supplemental oxygen. Given persistent pneumonia on chest x-ray despite antibiotics, and hypoxia, consultation was placed with the [facility] and patient reviewed with Dr. Groves. Differential diagnosis: Pneumonia, bronchitis, COPD/asthma exacerbation, recurrent malignancy, medication side effect, radiation side effect, pneumothorax, ACS, CHF, infections, cardiac ischemia, pulmonary embolism, among others. Administered Medications Albuterol (Albut/Ipratrop 3mg/0.5mg Neb 3 Ml Vial) 3 ml NEB QIDR JENNIFER; Protocol Stop: 10/28/24 15:16 Last Admin: 09/28/24 15:30 Dose: 3 ml Documented By: KEENAN Discontinued Medications Sodium Chloride (Nss) 1,000 mls @ 999 mls/hr IV .Q1H1M JENNIFER Stop: 09/28/24 12:35 Last Infusion: 09/28/24 13:58 Dose: Infused Documented By: Admin: 09/28/24 12:32 Dose: 999 mls/hr Documented By: CAP Cefepime HCl (Maxipime 2000mg) 2,000 mg in 20 mls @ 5 mls/min IV NOW STA; Protocol Stop: 09/28/24 11:44 Last Admin: 09/28/24 12:48 Dose: 5 mls/min Documented By: CAP Piperacillin Sod/Tazobactam Sod (Zosyn) 4.5 gm in 100 mls @ 200 mls/hr IV ONE ONE; Protocol Stop: 09/28/24 16:29 Last Infusion: 09/28/24 16:33 Dose: Infused Documented By: Admin: 09/28/24 15:55 Dose: 200 mls/hr Documented By: RACHEL Ioversol (Optiray 320 125ml) 119 ml IV ONCE ONE Stop: 09/28/24 11:48 Last Admin: 09/28/24 11:47 Dose: 119 ml Documented By: INDERJIT Medical Decision Making Differential Diagnosis See ED course. Medical Records Attestation: I reviewed the patient's medical records. Home Medications Current Medication List: was personally reviewed by me Laboratory Data Attestation: I reviewed the patient's lab results. 09/28/24 10:29 09/28/24 10:29 Lab Results 09/28/24 09/28/24 09/28/24 Range/Units 10:29 12:14 12:28 WBC 7.20 (4.8-10.8) K/ul RBC 3.36 L (4.70-6.10) M/uL Hgb 10.4 L (14.0-18.0) g/dl Hct 30.3 L (42.0-52.0) % MCV 90.2 (80.0-100.0) fL MCH 31.0 (25.0-34.0) pg MCHC 34.3 (32.0-36.0) g/dL RDW Std Deviation 40.3 (36.4-46.3) fL RDW Coeff of Robert 12.3 (11.5-14.5) % Plt Count 232 (130-400) K/uL MPV 9.5 (9.4-12.4) fL Immature Gran % (Auto) 0.6 % Neut % (Auto) 76.4 % Lymph % (Auto) 8.6 % [place] % (Auto) 11.9 % Eos % (Auto) 1.9 % Baso % (Auto) 0.6 % Neut # (Auto) 5.50 (1.40-6.50) K/uL Lymph # (Auto) 0.62 L (1.20-3.40) K/uL [place] # (Auto) 0.86 H (0.11-0.59) K/uL Eos # (Auto) 0.14 (0.00-0.50) K/uL Baso # (Auto) 0.04 (0.00-0.20) K/uL Immature Gran # (Auto) 0.04 (0.01-0.20) K/uL PT 10.7 (9.0-12.0) Seconds INR 1.0 (0.9-1.1) APTT 28 (21-31) Seconds PTT Ratio 1.0 Sodium 138 (136-145) mmol/L Potassium 4.4 (3.5-5.1) mmol/L Chloride 107 (98-107) mmol/L Carbon Dioxide 24 (21-32) mmol/L Anion Gap 7 (3-11) BUN 31 H (6-23) mg/dl Creatinine 1.80 H (0.6-1.4) mg/dl Est Cr Clr Drug Dosing 62.5 ml/min eGFR 43.09 BUN/Creatinine Ratio 17.2 (10-20) Glucose 138 H (70-99(Fasting)) mg/dl Lactate 1.1 (0.4-2.0) mmol/L Calcium 8.9 (8.6-10.3) mg/dl Magnesium 1.7 (1.7-2.4) mg/dl Total Bilirubin 0.3 (0.2-1.0) mg/dl AST 21 (13-39) U/L ALT 27 (7-52) U/L Alkaline Phosphatase 66 (34-104) U/L Troponin I High Sens < 2.3 (0-20) pg/ml B-Natriuretic Peptide 71 (0-100) pg/ml Total Protein 7.3 (6.0-8.3) gm/dl Albumin 3.6 (3.4-5.0) gm/dl Globulin 3.7 (2.5-4.0) gm/dl Albumin/Globulin Ratio 1.0 (0.9-2) Urine Color Yellow Urine Appearance Clear (Clear) Urine pH 5.0 (4.5-7.5) Ur Specific [place] 1.035 H (1.000-1.030) Urine Protein Negative (Negative) Urine Glucose (UA) Negative (Negative) Urine Ketones Negative (Negative) Urine Blood Negative (Negative) Urine Nitrite Negative (Negative) Urine Bilirubin Negative (Negative) Urine Urobilinogen Negative (Negative) Ur Leukocyte Esterase Negative (Negative) Imaging Data Attestation: I personally reviewed and interpreted this imaging study as follows: Radiologist's Impression: Chest CTA 09/28/24 10:19 CT angio chest PE protocol CT DOSE: 1008.99 mGy.cm HISTORY: Dyspnea, hypoxia, hx of lung CA. TECHNIQUE: Multiple CTA images of the chest were obtained after the intravenous administration of 120 ml Optiray. Coronal and sagittal MIPS were obtained from the axial data set and were submitted for review. All measurements were obtained according to NASCET criteria. A dose lowering technique was utilized adhering to the principles of ALARA. COMPARISON STUDY: 04/01/2024 FINDINGS: There are trace airway secretions. There is moderate emphysema. There is interval patchy dense consolidation throughout the majority of the right lower lobe and the right perihilar upper lobe. This includes the region of the prior right lower lobe nodule which is now obscured by the consolidation. No pleural effusion or pneumothorax. The prior right hilar lymph node has improved. Otherwise stable small mediastinal lymph nodes with no progressive adenopathy. No thoracic aortic dissection or aneurysm. No pericardial effusion. No pulmonary embolism. No acute osseous findings. IMPRESSION: 1. No pulmonary embolism seen. 2. Interval right lung consolidation as described. This likely represents a combination of radiation pneumonitis and superimposed pneumonia. Follow-up is recommended. ACT 112: Positive. There are findings on this exam that require communication between the performing entity and the patient following Patient Test Result Information Act ([place] Act 112) guidelines. The above report was generated using voice recognition software. It may contain grammatical, syntax or spelling errors. Electronically signed by: Adrian Berry M.D. 09/28/2024 11:57 AM Chest X-Ray 09/28/24 10:19 XR chest 1V portable CLINICAL HISTORY: Dyspnea COMPARISON STUDY: 09/15/2024 FINDINGS: Stable left chest port. Heart size and pulmonary vasculature are normal. There is progressive dense patchy consolidation right perihilar lung. No pleural effusion or pneumothorax. IMPRESSION: Progressive pneumonia on the right. Follow-up to resolution recommended to rule out underlying nodule. ACT 112: Positive. There are findings on this exam that require communication between the performing entity and the patient following Patient Test Result Information Act ([place] Act 112) guidelines. Electronically signed by: Adrian Berry M.D. 09/28/2024 10:57 AM MDM Narrative See ED course. Impression & Plan Pneumonia, Acute respiratory failure with hypoxia, Small cell lung cancer, Immunocompromised patient Discharge Plan Visit Data Chief Complaint: Shortness of Breath/Dyspnea Stated Complaint: TROUBLE BREATHING, RT LUNG CX, FATIGUE ED Provider: Juancho Valdivia ED Midlevel Provider: Vamshi Cowart Discharge Problem: Pneumonia, Acute respiratory failure with hypoxia, Small cell lung cancer, Immunocompromised patient Patient Disposition: Admitted As Inpatient Condition: Fair Discharge Instructions Interventions: ED Discharge Assessment Last Done: 09/28/24 15:20
[2024-09-28 10:42] LABS: Basophils # (auto) 0.04 K/uL (0.00-0.20); Basophils % (auto) 0.6 %; Eosinophils # (auto) 0.14 K/uL (0.00-0.50); Eosinophils % (auto) 1.9 %; Hematocrit (blood only) 30.3 % (42.0-52.0); Hemoglobin 10.4 g/dl (14.0-18.0); Immature Granulocytes # (auto) 0.04 K/uL (0.01-0.20); Immature Granulocytes % (auto) 0.6 %; Lymphocytes # (auto) 0.62 K/uL (1.20-3.40); Lymphocytes % (auto) 8.6 %; Mean Corpuscular Hgb Conc 34.3 g/dL (32.0-36.0); Mean Corpuscular Volume 90.2 fL (80.0-100.0); Mean Platelet Volume 9.5 fL (9.4-12.4); Monocytes # (auto) 0.86 K/uL (0.11-0.59); Monocytes % (auto) 11.9 %; Neutrophils % (auto) 76.4 %; Platelet Count 232 K/uL (130-400); RDW Coefficient of Variation 12.3 % (11.5-14.5); RDW Standard Deviation 40.3 fL (36.4-46.3); Red Blood Count 3.36 M/uL (4.70-6.10)
--- NOTE | 2024-09-28 10:58 | XRay Report ---
XR chest 1V portable CLINICAL HISTORY: Dyspnea COMPARISON STUDY: 09/15/2024 FINDINGS: Stable left chest port. Heart size and pulmonary vasculature are normal. There is progressi ve dense patchy consolidation right perihilar lung. No pleural effusion or pneumothorax. IMPRESSION: Progressive pneumonia on the right. Follow-up to resolution recommended to rule out unde rlying nodule. ACT 112: Positive. There are findings on this exam that require communication between the performing entity and the patient following Patient Test Result Information Act ([place] Act 112) guidelines. Electronically signed by: Adrian Berry M.D. 09/28/2024 10:57 AM
[2024-09-28 11:06] LABS: Alanine Aminotransferase 27 U/L (7-52); Albumin Level 3.6 gm/dl (3.4-5.0); Alkaline Phosphatase 66 U/L (34-104); Anion Gap 7 (3-11); Aspartate Aminotransferase 21 U/L (13-39); BUN Creatinine Ratio 17.2 (10-20); Bilirubin,Total 0.3 mg/dl (0.2-1.0); Blood Urea Nitrogen 31 mg/dl (6-23); Calcium 8.9 mg/dl (8.6-10.3); Carbon Dioxide 24 mmol/L (21-32); Chloride 107 mmol/L (98-107); Creatinine Clr Calc Pharmacy 62.5 ml/min; Globulin 3.7 gm/dl (2.5-4.0); Glucose 138 mg/dl (70-99(Fasting)); Magnesium 1.7 mg/dl (1.7-2.4); Potassium 4.4 mmol/L (3.5-5.1); Sodium 138 mmol/L (136-145); Total Protein 7.3 gm/dl (6.0-8.3)
[2024-09-28 11:10] LABS: Partial Thromboplastin Time 28 Seconds (21-31); Prothrombin Time 10.7 Seconds (9.0-12.0)
[2024-09-28 11:18] LABS: Troponin I High Sensitivity < 2.3 pg/ml (0-20)
[2024-09-28] MEDS: OPTIRAY 320 125ml IV ONE (11:47)
--- NOTE | 2024-09-28 11:58 | CT Scan Report ---
CT angio chest PE protocol CT DOSE: 1008.99 mGy.cm HISTORY: Dyspnea, hypoxia, hx of lung CA. TECHNIQUE: Multiple CTA images of the chest were obtained after the intravenous administration of 120 ml Optiray. Coronal and sagittal MIPS were obtained from the axial data set and were submitted for review. All measurements were obtained according to NASCET criteria. A dose lowering technique was u tilized adhering to the principles of ALARA. COMPARISON STUDY: 04/01/2024 FINDINGS: There are trace airway secretions. There is moderate emphysema. There is interval patchy de nse consolidation throughout the majority of the right lower lobe and the right perihilar upper lobe. This includes the region of the prior right lower lobe nodule which is now obscured by the consolida tion. No pleural effusion or pneumothorax. The prior right hilar lymph node has improved. Otherwise s table small mediastinal lymph nodes with no progressive adenopathy. No thoracic aortic dissection or aneurysm. No pericardial effusion. No pulmonary embolism. No acute osseous findings. IMPRESSION: 1. No pulmonary embolism seen. 2. Interval right lung consolidation as described. This likely represents a combination of radiation pneumonitis and superimposed pneumonia. Follow-up is recommended. ACT 112: Positive. There are findings on this exam that require communication between the performing entity and the patient following Patient Test Result Information Act ([place] Act 112) guidelines. The above report was generated using voice recognition software. It may contain grammatical, syntax o r spelling errors. Electronically signed by: Adrian Berry M.D. 09/28/2024 11:57 AM
[2024-09-28] MEDS: SODIUM CHLORIDE 0.9% 1,000 ML IV SCH (12:32)
[2024-09-28] MEDS: CEFEPIME 2000MG 2,000 MG/20 ML SYR IV STA (12:48)
[2024-09-28 13:47] LABS: Appearance Urine Clear (Clear); Bilirubin Urine Negative (Negative); Blood Urine Negative (Negative); Color Urine Yellow; Glucose Urine UA Negative (Negative); Ketones Urine Negative (Negative); Leukocyte Esterase Urine Negative (Negative); Nitrite Urine Negative (Negative); Protein Urine Negative (Negative); Specific Gravity Urine 1.035 (1.000-1.030); Urobilinogen Urine Negative (Negative)
--- NOTE | 2024-09-28 14:14 | History & Physical Report ---
Date of Service September 28, 2024 Assessment & Plan (1) Pneumonia: Plan: The patient was treated as an outpatient with azithromycin and a second antibiotic which she cannot name. His symptoms responded to a minimal degree but then became worse again. He presented to the ED and was found to have extensive right sided pneumonia. Sputum culture will be obtained. Intravenous Zosyn, day 1 (2) Immunocompromised patient: Plan: The patient continues to receive injections of a medication he cannot name that suppresses his immune status (3) Acute exacerbation of COPD with asthma: Plan: Treat underlying pneumonia. Scheduled DuoNebs (4) Acute respiratory failure with hypoxia: Plan: Supplemental oxygen to maintain saturation greater than 90%. Wean off as tolerated (5) Small cell lung cancer: Plan: By history. He states he completed his chemotherapy and radiation therapy last year (6) CKD (chronic kidney disease): Plan: Stage III. Current creatinine is 1.8. Will monitor intake and output. Serial labs Plan Hopeful discharge to home in 2 to 3 days History of Present Illness Chief Complaint: Dyspnea on exertion, productive cough Primary Care Provider: Erin Neal MD 58-year-old white male with a history of COPD and small cell lung cancer who was treated as an outpatient with azithromycin and another antibiotic that the patient cannot name for right-sided pneumonia. His symptoms minimally improved and he came to the ED for evaluation. Chest x-ray reveals extensive right-sided pneumonia. Chest CT is negative for pulmonary embolism. He is requiring supplemental oxygen. He denies fever or chills. No hemoptysis. No pleuritic type pain. He is admitted for further evaluation and treatment Allergies Allergy/AdvReac Type Severity Reaction Status Date / Time No Known Drug Allergies Allergy Verified 09/28/24 08:48 Home Medications Medication Instructions Recorded Confirmed Type albuterol sulfate 90 mcg/actuation 1 inh inhalation QID PRN shortness 09/30/23 09/28/24 Rx aerosol inhaler of breath or wheezing #18 grams tamsulosin 0.4 mg capsule 0.4 mg PO QAM 02/12/24 09/28/24 History fluticasone fur. 200 mcg-umeclid 1 inh inhalation DAILY #60 ea 03/12/24 09/28/24 Rx 62.5 mcg-vilant 25 mcg inhalat.powder (Trelegy Ellipta) pantoprazole 20 mg tablet,delayed 20 mg PO QAM #90 tabs 03/19/24 09/28/24 Rx release acetaminophen 325 mg tablet 650 mg (2 x 325 mg) PO Q4H PRN 05/19/24 09/28/24 Rx pain #1 tab losartan 100 mg tablet 100 mg PO QAM #90 tabs 07/01/24 09/28/24 Rx montelukast 10 mg tablet 10 mg PO QAM #30 tabs 07/14/24 09/28/24 Rx escitalopram oxalate 20 mg tablet 20 mg PO QAM #90 tabs 07/20/24 09/28/24 Rx atenolol 25 mg tablet 25 mg PO DAILY #30 tabs 08/03/24 09/28/24 Rx atorvastatin 10 mg tablet 10 mg PO QPM #90 tabs 08/30/24 09/28/24 Rx trazodone 100 mg tablet 100 mg PO HS #90 tabs 09/15/24 09/28/24 Rx Past Med/Surg History Problem List (Updated 09/28/24 @ 14:12 by Ephraim Groves MD) Small cell lung cancer Acute respiratory failure with hypoxia Acute exacerbation of COPD with asthma Immunocompromised patient Pneumonia Neck pain Numbness and tingling in right hand URI (upper respiratory infection) CKD (chronic kidney disease) Acute asthmatic bronchitis PAF (paroxysmal atrial fibrillation) Health care maintenance Gait disturbance Anemia Sleep disturbances Small cell lung cancer (Chronic 02/14/24) Emphysema lung Asthma BPH loc w urin obs/LUTS Atherosclerotic cardiovascular disease Hypersomnolence Allergic rhinitis Bradycardia Tubular adenoma of colon Discoloration of skin Idiopathic or primary livedo reticularis Adjustment disorder with anxiety (Acute) Asthmatic bronchitis (Acute) Cervical radiculopathy (Acute) Excessive sweating (Acute) Gastritis, bile acid reflux (Acute) Hyperlipidemia (Acute) Hypertension (Acute) Shortness of breath on exertion (Chronic) Ulnar nerve palsy (Acute) Medical History Bimalleolar fracture of left ankle Abnormal PSA Elevated serum creatinine Chest pain with low to intermediate probability of pulmonary embolism Chest pain Adjustment disorder with anxiety Idiopathic or primary livedo reticularis Tubular adenoma of colon History of bradycardia BPH (benign prostatic hyperplasia) Asthma Bimalleolar fracture of left ankle 06/04/2024 currently inpatient at [facility] Sleep apnea no device Neutropenia IBS (irritable bowel syndrome) H. pylori infection Anxiety DONAVON (obstructive sleep apnea) Severe sleep apnea per 03/05/24 sleep study CPAP order faxed to [facility] per 03/06/24 workload communication note Emphysema lung Small cell lung cancer Recent diagnosis 01/2024, chemo current Morbid obesity Premature ventricular contraction Hx GERD without esophagitis Chronic cough History of bradycardia Hypersomnolence Allergic rhinitis Hx of gastritis Hypertension Hyperlipidemia Adjustment disorder with mixed anxiety and depressed mood Lung nodule Atherosclerotic cardiovascular disease Surgical History Port-A-Cath in place (03/12/24) Insertion of Access Port Left Internal Jugular with Fluoroscopy(Not Applicable) - Adrian Wallace, DO, FACS Hx of tonsillectomy History of surgery Left shoulder - torn rotator cuff History of bronchoscopy 02/14/2024, [facility] Hx of colonoscopy with polypectomy (09/2023) Hx of cardiac catheterization (2015) No stents S/P sinus surgery S/P cholecystectomy Family History Grandmother (Maternal) Bone cancer Mother Breast cancer Hiatal hernia Endometrial cancer A-fib Father Hypertension Dementia Stroke CHF (congestive heart failure) History of lung surgery Uncle Diabetes Hypertension Stroke Grandfather Diabetes Heart disease Stroke Sister Family history of reaction to anesthesia nausea/vomiting Brother Lung cancer Sleep apnea Brother Hepatitis C Brother No problems noted. Sister Cerebral aneurysm Breast cancer Hypertension Sister No problems noted. Daughter No problems noted. Other Asthma Cancer Emphysema, unspecified Denies family history of Ovarian cancer Prostate cancer Myocardial infarction Colorectal cancer Lung disease Social History Smoking Status: Former smoker Tobacco Type: Cigarettes Age Started Using Tobacco: 24; Age Quit Using Tobacco: 46; packs per day: 2; Second Hand Exposure: No; Do You Dip or Chew Tobacco: No; Hx Alcohol Use: No Hx Substance Use: No Preferred Language: Italian Communication Ability: Effective Visual Impairment: No Limitations Hearing Ability: Normal Seat Mender Required: No Beliefs That Will Affect Care: None marital status: Single Current Living Situation: Family current occupational status: disabled 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 Dyspnea on exertion. No wheezing. No hemoptysis Cardiacno palpitations, no chest pain, no syncope Manfred nausea, vomiting, diarrhea, melena, hematochezia GUno urinary retention, no urinary incontinence, no dysuria, no hematuria Musculoskeletalno joint pain, no muscle tenderness Skinno bruising, no rashes, no pruritus Neurono isolated weakness, no paresthesia, no weakness Psychno depression, no anxiety Physical Exam 2 Physical Exam: General-alert and oriented x3, no fever, no chills HEENT-head atraumatic and normocephalic, pupils equal and reactive to light, extraocular muscles intact Neck-no lymphadenopathy or thyromegaly, trachea midline Chest-left lung clear. Right lung with diffuse rhonchi. No audible wheezing. No inspiratory rales Cardiac-regular rate and rhythm, normal S1 and S2 Abdomen-normal bowel sounds, no hepatosplenomegaly Extremities-no cyanosis, clubbing, or edema Neuro-cranial nerves II through XII intact, motor and sensory function within normal limits, strength symmetrical, no focal deficits Psych-normal affect, normal mood Results & Data Results & Data Vital Signs (Past 12 Hours) Vital Signs Temp Pulse Resp BP Pulse Ox O2 Del Method 09/28/24 12:45 141/96 H 09/28/24 12:30 63 18 97 Room Air 09/28/24 12:12 66 22 90 Room Air 09/28/24 09:38 36.4 C L 72 20 109/70 93 Room Air, Aerosol Mask Laboratory Results 09/28/24 10:29 09/28/24 10:29 Code Status & VTE Plan Code Status Full code PG Care Time/CCT Total # of Minutes Spent Total Time Spent with Patient: Total time spent is greater than 50% in coordination of care (as documented) at patient's floor/unit and/or counseling patient: Coding Level of Care Code 57896 INT INP/OBS CARE 3/75MIN Diagnoses Pneumonia J18.9 Immunocompromised patient D84.9 Acute exacerbation of COPD with asthma J44.1 Acute respiratory failure with hypoxia J96.01 Small cell lung cancer C34.90 CKD (chronic kidney disease) N18.9
[2024-09-28] MEDS ORDERED: ONDANSETRON INJ 2 MG/ML 2 ML VIAL IV PRN (15:17)
[2024-09-28] MEDS: ALBUT/IPRATROP 3MG/0.5MG NEB 3 ML VIAL NEB SCH (15:30)
[2024-09-28] MEDS: PIPERACILLIN/TAZOBACTAM 4.5 GM/100 ML BAG IV ONE (15:55)
--- NOTE | 2024-09-28 18:30 | Electrocardiogram Report ---
Test Reason : Blood Pressure : */* mmHG Vent. Rate : 69 BPM Atrial Rate : 69 BPM P-R Int : 176 ms QRS Dur : 76 ms QT Int : 396 ms P-R-T Axes : 47 40 48 degrees QTcB Int : 424 ms Normal sinus rhythm Low voltage QRS Borderline ECG When compared with ECG of 31-Jul-2024 11:54, (unconfirmed) No significant change was found Confirmed by Mayito Alvarez ([id number]) on 09/28/2024 6:30:11 PM Referred By: REFERRED SELF Confirmed By: Mayito Alvarez
[2024-09-28] MEDS: traZODone HCL 100 MG TAB PO SCH (19:35)
[2024-09-28] MEDS: ATORVASTATIN 10 MG TAB PO SCH (19:35)
[2024-09-28] MEDS: PIPERACILLIN/TAZOBACTAM 4.5 GM/100 ML BAG IV SCH (21:25)
[2024-09-28] MEDS: TAMSULOSIN HCL 0.4 MG CAP PO SCH (21:25)
[2024-09-29 06:53] LABS: Basophils # (auto) 0.03 K/uL (0.00-0.20); Basophils % (auto) 0.5 %; Eosinophils # (auto) 0.18 K/uL (0.00-0.50); Eosinophils % (auto) 3.2 %; Hematocrit (blood only) 27.4 % (42.0-52.0); Hemoglobin 8.9 g/dl (14.0-18.0); Immature Granulocytes # (auto) 0.05 K/uL (0.01-0.20); Immature Granulocytes % (auto) 0.9 %; Lymphocytes # (auto) 0.64 K/uL (1.20-3.40); Lymphocytes % (auto) 11.3 %; Mean Corpuscular Hemoglobin 29.8 pg (25.0-34.0); Mean Corpuscular Hgb Conc 32.5 g/dL (32.0-36.0); Mean Corpuscular Volume 91.6 fL (80.0-100.0); Mean Platelet Volume 9.3 fL (9.4-12.4); Monocytes # (auto) 0.85 K/uL (0.11-0.59); Neutrophils # (auto) 3.93 K/uL (1.40-6.50); Neutrophils % (auto) 69.1 %; Platelet Count 204 K/uL (130-400); RDW Coefficient of Variation 12.6 % (11.5-14.5); RDW Standard Deviation 42.2 fL (36.4-46.3); Red Blood Count 2.99 M/uL (4.70-6.10); White Blood Count 5.68 K/ul (4.8-10.8)
[2024-09-29 07:15] LABS: BUN Creatinine Ratio 13.8 (10-20); Calcium 8.9 mg/dl (8.6-10.3); Creatinine Clr Calc Pharmacy 62.7 ml/min; Potassium 4.8 mmol/L (3.5-5.1)
[2024-09-29] MEDS: MONTELUKAST SODIUM 10 MG TABLET PO SCH (08:32)
[2024-09-29] MEDS: LOSARTAN POTASSIUM 50 MG TAB PO SCH (08:32)
[2024-09-29] MEDS: FLUTICASONE FUROATE 200MCG 14 PUFFS/INHALER INH SCH (08:33)
[2024-09-29] MEDS: ATENOLOL 25 MG TABLET PO SCH (08:33)
[2024-09-29] MEDS: ATORVASTATIN 10 MG TAB PO SCH (08:33)
[2024-09-29] MEDS: ESCITALOPRAM OXALATE 20 MG TAB PO SCH (08:33)
[2024-09-29] MEDS: UMECLIDINIUM/VILANTEROL 62.5/25MCG 7 PUFFS/INHALER INH SCH (08:34)
[2024-09-29] MEDS: ENOXAPARIN INJ 40 MG/0.4 ML SYR SQ SCH (08:34)
[2024-09-29] MEDS ORDERED: PANTOprazole 40 MG TAB PO SCH (09:00)
[2024-09-29] MEDS ORDERED: TAMSULOSIN HCL 0.4 MG CAP PO SCH (09:00)
[2024-09-29] MEDS ORDERED: NON-FORMULARY MEDICATION (Fluticasone-Umeclidin-Vilanter [Trelegy Ellipta] 200-62.5-25 mcg INH SCH (09:00)
[2024-09-29] MEDS: PSYLLIUM HUSK 4GM PACKET PO SCH (12:14)
--- NOTE | 2024-09-29 14:09 | Hospitalist Progress Note ---
Date of Service September 29, 2024 Assessment & Plan (1) Pneumonia: Plan: The patient was treated as an outpatient with azithromycin and a second antibiotic which she cannot name. His symptoms responded to a minimal degree but then became worse again. He presented to the ED and was found to have extensive right sided pneumonia. Sputum culture has been obtained today, September 29. Continue Zosyn, day 2. Will repeat chest x-ray again tomorrow, September 30 (2) Immunocompromised patient: Plan: The patient continues to receive injections of a medication he cannot name that suppresses his immune status (3) Acute exacerbation of COPD with asthma: Plan: Treat underlying pneumonia. Scheduled DuoNebs. Improving (4) Acute respiratory failure with hypoxia: Plan: Supplemental oxygen to maintain saturation greater than 90%. Wean off as tolerated (5) Small cell lung cancer: Plan: By history. He states he completed his chemotherapy and radiation therapy last year (6) CKD (chronic kidney disease): Plan: Stage III. Admission creatinine was 1.8. Currently stable. Will monitor intake and output. Serial labs Plan Hopeful discharge to home in 2 to 3 days Admission and Anticipated Discharge Date Admission Date: September 28, 2024 Subjective Alert and oriented. No distress. The patient states he is feeling somewhat better. Sputum culture was obtained today, September 29. Continue Zosyn, day 2. Oxygen saturation 90% on 1 L oxygen. Will repeat PA and left lateral chest x- ray tomorrow, September 30 Review of Systems 2 Review of Systems: Constitutionalno fever or chills ENTno blurred vision, no double vision, no epistaxis, no sore throat Respiratoryproductive cough. Dyspnea on exertion. No wheezing. No hemoptysis Cardiacno palpitations, no chest pain, no syncope Manfred nausea, vomiting, diarrhea, melena, hematochezia GUno urinary retention, no urinary incontinence, no dysuria, no hematuria Musculoskeletalno joint pain, no muscle tenderness Skinno bruising, no rashes, no pruritus Neurono isolated weakness, no paresthesia, no weakness Psychno depression, no anxiety Physical Exam 2 Physical Exam: General-alert and oriented x3, no fever, no chills HEENT-head atraumatic and normocephalic, pupils equal and reactive to light, extraocular muscles intact Neck-no lymphadenopathy or thyromegaly, trachea midline Chest-left lung clear. Right lung with diffuse rhonchi. No audible wheezing. No inspiratory rales Cardiac-regular rate and rhythm, normal S1 and S2 Abdomen-normal bowel sounds, no hepatosplenomegaly Extremities-no cyanosis, clubbing, or edema Neuro-cranial nerves II through XII intact, motor and sensory function within normal limits, strength symmetrical, no focal deficits Psych-normal affect, normal mood Results & Data Results & Data Vital Signs (Past 12 Hours) Vital Signs Temp Pulse Pulse Resp BP Pulse Ox O2 Del Method 09/29/24 11:58 36.6 C 90 18 138/78 91 Nasal Cannula 09/29/24 11:06 77 15 93 Nasal Cannula 09/29/24 08:30 Nasal Cannula 09/29/24 08:21 36.6 C 74 18 108/70 90 Nasal Cannula 09/29/24 07:09 76 16 94 Nasal Cannula 09/29/24 07:00 56 L 09/29/24 04:00 36.6 C 66 20 106/63 92 Nasal Cannula O2 Flow Rate 09/29/24 11:58 1 09/29/24 11:06 1 09/29/24 08:30 1 09/29/24 08:21 1 09/29/24 07:09 1.5 09/29/24 07:00 09/29/24 04:00 1 Laboratory Results 09/29/24 06:29 09/29/24 06:29 PG Care Time/CCT Total # of Minutes Spent Total Time Spent with Patient: Total time spent is greater than 50% in coordination of care (as documented) at patient's floor/unit and/or counseling patient: Coding Level of Care Code 32268 SUB INP/OBS CARE 2/35MIN Diagnoses Pneumonia J18.9 Immunocompromised patient D84.9 Acute exacerbation of COPD with asthma J44.1 Acute respiratory failure with hypoxia J96.01 Small cell lung cancer C34.90 CKD (chronic kidney disease) N18.9
[2024-09-29] MEDS: ACETAMINOPHEN 325 MG TAB PO PRN (18:44)
[2024-09-29] MEDS: ACETAMINOPHEN 500 MG TAB PO ONE (20:15)
[2024-09-30 06:56] LABS: Basophils # (auto) 0.04 K/uL (0.00-0.20); Basophils % (auto) 0.8 %; Eosinophils # (auto) 0.14 K/uL (0.00-0.50); Eosinophils % (auto) 2.7 %; Hematocrit (blood only) 28.8 % (42.0-52.0); Hemoglobin 9.4 g/dl (14.0-18.0); Immature Granulocytes # (auto) 0.04 K/uL (0.01-0.20); Immature Granulocytes % (auto) 0.8 %; Lymphocytes # (auto) 0.62 K/uL (1.20-3.40); Lymphocytes % (auto) 12.1 %; Mean Corpuscular Hemoglobin 29.9 pg (25.0-34.0); Mean Corpuscular Hgb Conc 32.6 g/dL (32.0-36.0); Mean Corpuscular Volume 91.7 fL (80.0-100.0); Mean Platelet Volume 9.4 fL (9.4-12.4); Monocytes # (auto) 0.77 K/uL (0.11-0.59); Neutrophils # (auto) 3.53 K/uL (1.40-6.50); Neutrophils % (auto) 68.6 %; Platelet Count 202 K/uL (130-400); RDW Coefficient of Variation 12.6 % (11.5-14.5); RDW Standard Deviation 42.2 fL (36.4-46.3); Red Blood Count 3.14 M/uL (4.70-6.10); White Blood Count 5.14 K/ul (4.8-10.8)
[2024-09-30 07:25] LABS: BUN Creatinine Ratio 11.2 (10-20); Calcium 9.3 mg/dl (8.6-10.3); Creatinine Clr Calc Pharmacy 63.7 ml/min; Potassium 4.7 mmol/L (3.5-5.1)
--- NOTE | 2024-09-30 10:10 | XRay Report ---
XR chest 2V PA/lateral CLINICAL HISTORY: right PNA follow-up right-sided pneumonia COMPARISON STUDY: 09/28/2024 FINDINGS: No significant interval changes have occurred. Airspace opacity with air bronchograms redem onstrated in the posterior and superior aspects of the right lower lobe. A left MediPort catheter is once again noted with the tip near the right atrium. Left lung is clear. IMPRESSION: No interval change. Airspace opacity in the right lower lobe could be infectious, neopla stic, or radiation-induced depending upon the clinical situation. ACT 112: Negative or not required by law. Electronically signed by: Danielle Mora M.D. 09/30/2024 10:09 AM
[2024-09-30] MEDS: ACETAMINOPHEN 500 MG TAB PO PRN (11:24)
--- NOTE | 2024-09-30 16:20 | Hospitalist Progress Note ---
Date of Service September 30, 2024 Assessment & Plan (1) Pneumonia: Plan: The patient was treated as an outpatient with azithromycin and a second antibiotic which she cannot name. His symptoms responded to a minimal degree but then became worse again. He presented to the ED and was found to have extensive right sided pneumonia. Sputum culture is nondiagnostic. He remains on Zosyn, day 3. Chest x-ray done today, September 30, looks better to my eye. (2) Immunocompromised patient: Plan: The patient continues to receive injections of a medication he cannot name that suppresses his immune status (3) Acute exacerbation of COPD with asthma: Plan: Treat underlying pneumonia. Scheduled DuoNebs. Improving (4) Acute respiratory failure with hypoxia: Plan: Resolved. Oxygen has been weaned off. He is now on room air (5) Small cell lung cancer: Plan: By history. He states he completed his chemotherapy and radiation therapy last year (6) CKD (chronic kidney disease): Plan: Stage III. Admission creatinine was 1.8. Currently stable. Will monitor intake and output. Serial labs Plan Hopefully home tomorrow, October 01 Admission and Anticipated Discharge Date Admission Date: September 28, 2024 Subjective Feeling better overall. He is now on room air. Chest x-ray done today, September 30, looks better. Sputum culture is nondiagnostic. He remains on Zosyn, day 3. Incentive spirometry has been added to his treatment regimen. Hopefully he can go home tomorrow, October 01. Review of Systems 2 Review of Systems: Constitutionalno fever or chills ENTno blurred vision, no double vision, no epistaxis, no sore throat Respiratoryproductive cough. Dyspnea on exertion. No wheezing. No hemoptysis Cardiacno palpitations, no chest pain, no syncope Manfred nausea, vomiting, diarrhea, melena, hematochezia GUno urinary retention, no urinary incontinence, no dysuria, no hematuria Musculoskeletalno joint pain, no muscle tenderness Skinno bruising, no rashes, no pruritus Neurono isolated weakness, no paresthesia, no weakness Psychno depression, no anxiety Physical Exam 2 Physical Exam: General-alert and oriented x3, no fever, no chills HEENT-head atraumatic and normocephalic, pupils equal and reactive to light, extraocular muscles intact Neck-no lymphadenopathy or thyromegaly, trachea midline Chest-left lung clear. Right lung with diffuse rhonchi. No audible wheezing. No inspiratory rales Cardiac-regular rate and rhythm, normal S1 and S2 Abdomen-normal bowel sounds, no hepatosplenomegaly Extremities-no cyanosis, clubbing, or edema Neuro-cranial nerves II through XII intact, motor and sensory function within normal limits, strength symmetrical, no focal deficits Psych-normal affect, normal mood Results & Data Results & Data Vital Signs (Past 12 Hours) Vital Signs Temp Pulse Pulse Resp BP Pulse Ox O2 Del Method 09/30/24 15:18 36.3 C L 76 18 101/61 93 Room Air 09/30/24 14:32 74 16 95 Nasal Cannula 09/30/24 14:00 77 09/30/24 11:31 36.6 C 96 H 18 101/65 91 Room Air 09/30/24 11:00 61 18 95 Nasal Cannula 09/30/24 07:42 36.5 C 65 18 105/56 L 94 Nasal Cannula 09/30/24 07:24 59 L 18 93 Nasal Cannula 09/30/24 07:00 60 O2 Flow Rate 09/30/24 15:18 09/30/24 14:32 1 09/30/24 14:00 09/30/24 11:31 09/30/24 11:00 1 09/30/24 07:42 1 09/30/24 07:24 1 09/30/24 07:00 Laboratory Results 09/30/24 06:30 09/30/24 06:30 PG Care Time/CCT Total # of Minutes Spent Total Time Spent with Patient: Total time spent is greater than 50% in coordination of care (as documented) at patient's floor/unit and/or counseling patient: Coding Level of Care Code 23469 SUB INP/OBS CARE 2/35MIN Diagnoses Pneumonia J18.9 Immunocompromised patient D84.9 Acute exacerbation of COPD with asthma J44.1 Acute respiratory failure with hypoxia J96.01 Small cell lung cancer C34.90 CKD (chronic kidney disease) N18.9
[2024-10-01 07:24] VITALS: RESP 18
[2024-10-01 08:26] VITALS: TEMP 97.3
[2024-10-01 08:49] LABS: Basophils # (auto) 0.04 K/uL (0.00-0.20); Basophils % (auto) 0.8 %; Eosinophils # (auto) 0.14 K/uL (0.00-0.50); Eosinophils % (auto) 2.6 %; Hematocrit (blood only) 29.4 % (42.0-52.0); Hemoglobin 9.7 g/dl (14.0-18.0); Immature Granulocytes # (auto) 0.03 K/uL (0.01-0.20); Immature Granulocytes % (auto) 0.6 %; Lymphocytes # (auto) 0.74 K/uL (1.20-3.40); Lymphocytes % (auto) 13.9 %; Mean Corpuscular Hemoglobin 30.2 pg (25.0-34.0); Mean Corpuscular Volume 91.6 fL (80.0-100.0); Mean Platelet Volume 9.4 fL (9.4-12.4); Monocytes # (auto) 0.68 K/uL (0.11-0.59); Monocytes % (auto) 12.8 %; Neutrophils % (auto) 69.3 %; Platelet Count 219 K/uL (130-400); RDW Coefficient of Variation 12.7 % (11.5-14.5); RDW Standard Deviation 42.4 fL (36.4-46.3); Red Blood Count 3.21 M/uL (4.70-6.10); White Blood Count 5.33 K/ul (4.8-10.8)
[2024-10-01 09:04] LABS: BUN Creatinine Ratio 9.9 (10-20); Calcium 9.4 mg/dl (8.6-10.3); Creatinine Clr Calc Pharmacy 55.9 ml/min; Potassium 4.5 mmol/L (3.5-5.1)
--- NOTE | 2024-10-01 11:59 | Discharge Summary ---
Discharge Summary Date of Service October 01, 2024 Principal Dx & Hospital Course #1 = Principal Diagnosis (1) Pneumonia: The patient was treated as an outpatient with azithromycin and a second antibiotic which she cannot name. His symptoms responded to a minimal degree but then became worse again. He presented to the ED and was found to have extensive right sided pneumonia. Sputum culture is nondiagnostic. He was treated while hospitalized with Zosyn. He will continue with oral Augmentin at discharge for 1 more week (2) Immunocompromised patient: The patient continues to receive injections of a medication he cannot name that suppresses his immune status (3) Acute exacerbation of COPD with asthma: Improved. Back to baseline. Will continue to treat underlying pneumonia. Scheduled DuoNebs while hospitalized. (4) Acute respiratory failure with hypoxia: He is again requiring low-flow oxygen. Two-step oxygen evaluation was completed this morning, October 01. A prescription has been given to the patient for continued oxygen at 2 L/min continuous for the time being. This will eventually be weaned off. (5) Small cell lung cancer: By history. He states he completed his chemotherapy and radiation therapy last year (6) CKD (chronic kidney disease): Stage III. Admission creatinine was 1.8. Currently stable. Will monitor intake and output. Serial labs Plan Home today, October 01, on oral Augmentin for 1 more week along with supplemental oxygen per nasal cannula which will eventually be weaned off. See primary care provider soon as possible. Admission HPI Per Admitting Provider 58-year-old white male with a history of COPD and small cell lung cancer who was treated as an outpatient with azithromycin and another antibiotic that the patient cannot name for right-sided pneumonia. His symptoms minimally improved and he came to the ED for evaluation. Chest x-ray reveals extensive right-sided pneumonia. Chest CT is negative for pulmonary embolism. He is requiring supplemental oxygen. He denies fever or chills. No hemoptysis. No pleuritic type pain. He is admitted for further evaluation and treatment Discharge Exam General-alert and oriented x3, no fever, no chills HEENT-head atraumatic and normocephalic, pupils equal and reactive to light, extraocular muscles intact Neck-no lymphadenopathy or thyromegaly, trachea midline Chest-left lung clear. Right lung with diffuse rhonchi. No audible wheezing. No inspiratory rales Cardiac-regular rate and rhythm, normal S1 and S2 Abdomen-normal bowel sounds, no hepatosplenomegaly Extremities-no cyanosis, clubbing, or edema Neuro-cranial nerves II through XII intact, motor and sensory function within normal limits, strength symmetrical, no focal deficits Psych-normal affect, normal mood Discharge Plan Discharge Items Patient Disposition: Home - Self-Care Reason For Visit: PNEUMONIA Discharge Diagnosis: Community-acquired pneumonia, acute hypoxic respiratory failure Condition on Discharge: Good Activity: As commented below Activity Comment: Wear oxygen at all times. Avoid overexertion until cleared by your primary Non-emergency contact: Primary Care Provider Call non-emergency contact if: your symptoms worsen Follow-up/Referrals: Erin Neal MD [Primary Care Provider] - 10/08/24 3:00 pm Diet: Regular Addtl Attending Provider Instructions: Take Augmentin (amoxicillin/clavulanate) twice daily for 1 week. Wear oxygen at 2 L/min per nasal cannula at all times. See primary care provider soon as possible Pending Studies at Discharge: No Stand-Alone Forms: [facility] Medications and DC Order Prescriptions: New amoxicillin-pot clavulanate 875-125 mg tablet 1 tab PO BID Qty: 14 0RF Continued albuterol sulfate 90 mcg/actuation HFA aerosol inhaler 1 inh inhalation QID PRN (Reason: shortness of breath or wheezing) Qty: 18 3RF Trelegy Ellipta 200-62.5-25 mcg blister with device 1 inh inhalation DAILY Qty: 60 2RF pantoprazole 20 mg tablet,delayed release (DR/EC) 20 mg PO QAM Qty: 90 3RF Hold Instructions: due to CKD montelukast 10 mg tablet 10 mg PO QAM Qty: 30 2RF escitalopram oxalate 20 mg tablet 20 mg PO QAM Qty: 90 1RF atenolol 25 mg tablet 25 mg PO DAILY Qty: 30 11RF atorvastatin 10 mg tablet 10 mg PO QPM Qty: 90 3RF losartan 100 mg tablet 100 mg PO QAM Qty: 90 3RF trazodone 100 mg tablet 100 mg PO HS Qty: 90 3RF acetaminophen 325 mg Tablet 650 mg PO Q4H PRN (Reason: pain) Qty: 1 0RF tamsulosin 0.4 mg capsule 0.4 mg PO QAM Discharge Orders: Discharge Order (Routine); Ordered 05/15/25 Ordered By: Ephraim Groves Admission Data Admit Date/Time: 09/28/24 14:03 Attending Provider: Ephraim Groves Admit Provider: Ephraim Groves Primary Care Provider: Erin Neal V. Other Providers: Ephraim Groves Hospital Stay Data Consultations 09/28/24 13:33 ED Decision to Admit Stat Diagnostic Imagining Performed 09/28/24 10:19 CT angio chest PE protocol Stat Pending Results Patient Have Any Pending Studies at Discharge: No Discharge Instructions Given to Patient (Per Discharging Provider) Take Augmentin (amoxicillin/clavulanate) twice daily for 1 week. Wear oxygen at 2 L/min per nasal cannula at all times. See primary care provider soon as possible Total Time Total Time Spent Total Time Spent (In Minutes): 45 minutes Coding Level of Care Code 98559 INP/OBS DISCH >30 MIN Diagnoses Pneumonia J18.9 Immunocompromised patient D84.9 Acute exacerbation of COPD with asthma J44.1 Acute respiratory failure with hypoxia J96.01 Small cell lung cancer C34.90 CKD (chronic kidney disease) N18.9
[2024-10-01 12:09] VITALS: BP 106/63; PULSE 78; O2SAT 93
== END 2024-10-01 15:04 | disposition home or self-care (01) | DRG 193 ==
LOC: ED 09:36 → 2N 14:03